=== PATIENT | female | born 1965 | race Caucasian/White ===

== ENCOUNTER 2024-05-11 12:46 | Inpatient (IN) ==
[2024-05-11 13:25] LABS: Base Excess VBG -3.7 mEq/L; HCO3 VBG 23 mmol/L; Oxygen Saturation VBG < 60.0 %; PCO2 VBG 45 mmHg (38-50); PO2 VBG 30 mmHg; pH VBG 7.31 (7.36-7.41)
[2024-05-11 13:40] LABS: Basophils # (auto) 0.05 K/uL (0.00-0.20); Basophils % (auto) 0.3 %; Hematocrit (blood only) 33.7 % (37.0-47.0); Hemoglobin 11.2 g/dl (12.0-16.0); Immature Granulocytes % (auto) 0.6 %; Lymphocytes # (auto) 1.01 K/uL (1.20-3.40); Lymphocytes % (auto) 5.7 %; Mean Corpuscular Hemoglobin 31.4 pg (25.0-34.0); Mean Corpuscular Hgb Conc 33.2 g/dL (32.0-36.0); Mean Corpuscular Volume 94.4 fL (80.0-100.0); Mean Platelet Volume 8.5 fL (9.4-12.4); Monocytes # (auto) 1.14 K/uL (0.11-0.59); Monocytes % (auto) 6.4 %; Neutrophils # (auto) 15.39 K/uL (1.40-6.50); Platelet Count 513 K/uL (130-400); RDW Coefficient of Variation 15.9 % (11.5-14.5); RDW Standard Deviation 54.4 fL (36.4-46.3); Red Blood Count 3.57 M/uL (4.20-5.40); White Blood Count 17.69 K/ul (4.8-10.8)
--- NOTE | 2024-05-11 13:42 | Emergency Department Note ---
Impression & Plan Hypoxia, Tachypnea, Pneumonia, COPD exacerbation, Medical non-compliance, Leukocytosis, Elevated liver enzymes, Tachycardia ED Provider Note NAME: CONRADO MALDONADO AGE: 59 SEX: F : 1965 ARRIVES VIA: Ambulance INFORMANT: [Patient][nursing] ED PROVIDER(S): [Tobias Deshpande MD] CHIEF COMPLAINT: Shortness of breath HISTORY OF PRESENT ILLNESS: The patient is a 59-year-old female with a history of COPD. As per report, she stopped all of her medications 5 months ago. She presents today for increasing dyspnea and shortness of breath. As per EMS, her O2 saturation was in the mid 80s. She required O2 supplementation. She does not typically wear oxygen. PMHx/PSHx/Social Hx: See Below PHYSICAL EXAM: GENERAL: Patient is in no acute distress. Agitated. Anxious. HEENT: No acute trauma, normocephalic atraumatic, mucous membranes dry, no nasal congestion. Extremely poor dentition. NECK: No stridor, no adenopathy, no meningismus, trachea is midline. LUNGS: Wheezing bilaterally, diminished breath sounds bilaterally, increased respiratory rate. Wet cough noted. HEART: Tachycardic with no obvious murmur, rhythm seems regular. ABDOMEN: Soft, nontender, no peritonitis. EXTREMITIES: No cyanosis, full range of motion of all the joints without pain or difficulty. NEUROLOGIC: Oriented x 3, no acute motor or sensory deficits, no focal weakness. SKIN: No jaundice, no diaphoresis. DIFFERENTIAL DIAGNOSIS: Bronchitis or pneumonia, medication noncompliance, anemia, viral illness, PE, among others. EMERGENCY DEPARTMENT PROCEDURES: MEDICAL DECISION MAKING: There is a moderate leukocytosis, this could be consistent with infection or the stress of her presentation. The patient did have a slight anemia with a hemoglobin of 11.2. Platelet count slightly elevated at just over 500. INR was slightly high at 1.2. VBG showed a subtle acidosis with a pH of 7.31. There was no significant CO2 retention. Lactic acid level was not elevated making severe sepsis less likely. There was no renal failure or significant electrolyte abnormality. Liver enzymes were elevated, the bilirubin however was normal. BNP was elevated consistent with potential CHF and fluid overload. ECG showed a sinus tachycardia, no obvious acute ST elevation. Cardiac enzyme testing x 1 was not consistent with acute cardiac injury. TSH was elevated consistent with hypothyroidism. Urinalysis did not show findings of infection. Aspirin, Tylenol and alcohol levels were undetectable. Urine tox was positive for ecstasy and amphetamines. Respiratory bio fire was negative. Chest x-ray showed diffuse parenchymal congestion consistent with infection. Chest CT did not show PE, multifocal pneumonia was seen. The patient received IV saline, 1.5 L. This amount of saline should cover for 30 cc/kg per sepsis protocol based on ideal body weight. She received IV Solu- Medrol. She received IV Ativan for agitation. She received IV cefepime as antibiotic therapy. She received 2 DuoNebs. The patient presents tachycardic, tachypneic, hypoxic. She was found to be suffering from pneumonia with a flare of COPD. She is going require a hospital stay and further pulmonary care. I spoke with the patient and case management, the on-call hospitalist was consulted. Of note, the patient has shown some improvement with treatment here in the ED. Prior/Outside records/notes reviewed: Today's EMS notes describing her presentation and transport to this hospital. ECG per my interpretation: Indication was shortness of breath. The ECG shows a sinus tachycardia with a rate of 108. There is a possible old septal infarct. There is no acute ST elevation, no PVCs. The QTc is 460. Continuous Cardiac Monitoring per my interpretation: An order was placed for continuous cardiac monitoring. The monitor shows a rate of 113 with sinus tachycardia. Imaging/x-ray results per my interpretation: Chest x-ray shows diffuse parenchymal congestion mostly on the right. COPD changes are seen. No obvious focal infiltrate. Chronic Medical/Social conditions affecting care: History of COPD and medication noncompliance Care/Management discussed with: Case management, the on-call hospitalist. Level of care consideration(s): After review of the information above and other included data: --I believe the patient requires escalation of care to admission Critical Care Note: I have personally spent 49 minutes of critical care time in the direct management of this patient. This includes bedside care, interpretation of diagnostic studies, and testing, discussion with consultants, patient, and family members, and other required patient management activities. This 49 minutes is in excess of all separately billable procedures. DISPOSITION: Admission Past Med/Surg History Problem List (Updated 05/11/24 @ 20:35 by Tobias Deshpande MD) Tachycardia (Acute) Elevated liver enzymes (Acute) Leukocytosis (Acute) Medical non-compliance (Acute) COPD exacerbation (Acute) Pneumonia (Acute) Tachypnea (Acute) Hypoxia (Acute) Cavitary pneumonia Acetaminophen overdose COPD with exacerbation Cocaine withdrawal Sepsis Elevated LFTs Cocaine abuse Cavitary lung disease Bronchiectasis COPD (chronic obstructive pulmonary disease) Acute hypoxic respiratory failure Medical History Current every day smoker Hypothyroidism Opioid dependence Family History Other Family history non-contributory Social History Smoking Status: Current every day smoker Tobacco Type: Cigarettes Hx Alcohol Use: No Hx Substance Use: Yes (unsure of narcotic name) Non-Prescribed Medications: Crack / Cocaine Last Used Substance: Just Prior to Arrival Preferred Language: Citizen Of [place] Communication Ability: Impaired [employer] Required: No Beliefs That Will Affect Care: None marital status: Single Current Living Situation: Family Current Living Situation Comment: lives with daughter Feels Safe at Home: Yes Assistive Devices: Denture - Upper Allergies Allergies Allergy/AdvReac Type Severity Reaction Status Date / Time No Known Allergies Allergy Verified 02/26/21 13:08 Home Meds Home Medications Medication Instructions Recorded Confirmed acetaminophen 500 mg tablet 500 mg PO Q6H PRN Pain 05/11/24 05/11/24 Results & Data (ED) Vital Signs Vital Signs - 24 hr 05/11/24 12:36 05/11/24 12:36 05/11/24 12:50 Temperature Temperature Source Pulse Rate Pulse Rate [Apical] 116 H Respiratory Rate 26 H Respiratory Effort / Characteristics Labored Pursed Lip Blood Pressure Blood Pressure [Left Arm] 126/86 Blood Pressure Mean Blood Pressure Mean [Left Arm] 99 Pulse Oximetry 94 Oxygen Delivery Method Nasal Cannula Nasal Cannula Nasal Cannula Oxygen Flow Rate 3 3 3 Sepsis Recent Fever Within 48 Hours Sepsis New/Unexplained Change in Mental Status Sepsis Action Taken by Nursing 05/11/24 13:04 05/11/24 13:10 05/11/24 13:25 Temperature 36.9 C Temperature Source Oral Pulse Rate 110 H 112 H Pulse Rate [Apical] Respiratory Rate 26 H Respiratory Effort / Characteristics Blood Pressure 126/86 Blood Pressure [Left Arm] Blood Pressure Mean 99 Blood Pressure Mean [Left Arm] Pulse Oximetry 95 95 Oxygen Delivery Method Nasal Cannula Nasal Cannula Oxygen Flow Rate 3 2 Sepsis Recent Fever Within 48 Hours No Sepsis New/Unexplained Change in Mental Status No Sepsis Action Taken by Nursing Physician Notified 05/11/24 14:30 Temperature Temperature Source Pulse Rate Pulse Rate [Apical] 111 H Respiratory Rate 26 H Respiratory Effort / Characteristics Blood Pressure Blood Pressure [Left Arm] 143/88 H Blood Pressure Mean Blood Pressure Mean [Left Arm] 106 Pulse Oximetry 96 Oxygen Delivery Method Nasal Cannula Oxygen Flow Rate 2 Sepsis Recent Fever Within 48 Hours Sepsis New/Unexplained Change in Mental Status Sepsis Action Taken by Group Home Medications Current Medication List: was personally reviewed by me Laboratory Data Attestation: I reviewed the patient's lab results. 05/11/24 12:55 05/11/24 12:55 Lab Results 05/11/24 05/11/24 05/11/24 Range/Units 12:55 13:33 14:13 WBC 17.69 H (4.8-10.8) K/ul RBC 3.57 L (4.20-5.40) M/uL Hgb 11.2 L (12.0-16.0) g/dl Hct 33.7 L (37.0-47.0) % MCV 94.4 (80.0-100.0) fL MCH 31.4 (25.0-34.0) pg MCHC 33.2 (32.0-36.0) g/dL RDW Std Deviation 54.4 H (36.4-46.3) fL RDW Coeff of Marilee 15.9 H (11.5-14.5) % Plt Count 513 H (130-400) K/uL MPV 8.5 L (9.4-12.4) fL Immature Gran % (Auto) 0.6 % Neut % (Auto) 87.0 % Lymph % (Auto) 5.7 % [place] % (Auto) 6.4 % Eos % (Auto) 0.0 % Baso % (Auto) 0.3 % Neut # (Auto) 15.39 H (1.40-6.50) K/uL Lymph # (Auto) 1.01 L (1.20-3.40) K/uL [place] # (Auto) 1.14 H (0.11-0.59) K/uL Eos # (Auto) 0.00 (0.00-0.50) K/uL Baso # (Auto) 0.05 (0.00-0.20) K/uL Immature Gran # (Auto) 0.10 (0.01-0.20) K/uL PT 12.5 H (9.0-12.0) Seconds INR 1.2 H (0.9-1.1) APTT 27 (21-31) Seconds PTT Ratio 1.0 VBG pH 7.31 L (7.36-7.41) VBG pCO2 45 (38-50) mmHg VBG pO2 30 mmHg VBG HCO3 23 mmol/L VBG O2 Saturation < 60.0 % VBG Base Excess -3.7 mEq/L Sodium 136 (136-145) mmol/L Potassium 3.6 (3.5-5.1) mmol/L Chloride 99 (98-107) mmol/L Carbon Dioxide 27 (21-32) mmol/L Anion Gap 10 (3-11) BUN 31 H (6-23) mg/dl Creatinine 1.10 (0.6-1.2) mg/dl Est Cr Clr Drug Dosing 39.6 ml/min eGFR 57.52 BUN/Creatinine Ratio 28.2 H (10-20) Glucose 95 (70-99(Fasting)) mg/dl Lactate 1.6 (0.4-2.0) mmol/L Calcium 9.8 (8.6-10.3) mg/dl Magnesium 1.9 (1.7-2.4) mg/dl Total Bilirubin 0.5 (0.2-1.0) mg/dl AST 126 H (13-39) U/L ALT 73 H (7-52) U/L Alkaline Phosphatase 105 H (34-104) U/L Troponin I High Sens 13.5 (0-14) pg/ml B-Natriuretic Peptide 223 H (0-100) pg/ml Total Protein 9.2 H (6.0-8.3) gm/dl Albumin 4.2 (3.4-5.0) gm/dl Globulin 5.0 H (2.5-4.0) gm/dl Albumin/Globulin Ratio 0.8 L (0.9-2) TSH 38.955 H (0.300-4.500) uIu/ml Free T4 0.33 L (0.61-1.60) ng/dl Ethyl Alcohol mg/dL < 10.0 (<10.0) mg/dl Adenovirus (PCR) (NotDetected) B. pertussis DNA (PCR) (NotDetected) B.parapertussis DNA PCR (NotDetected) C. pneumoniae DNA (PCR) (NotDetected) Coronavirus OC43 (PCR) (NotDetected) Coronavirus HKU1 (PCR) (NotDetected) Coronavirus 229E (PCR) (NotDetected) SARS-CoV-2 (PCR) (NotDetected) Coronavirus NL63 (PCR) (NotDetected) Human Metapneumovir PCR (NotDetected) Influenza Type A (PCR) (NotDetected) Influenza Type B (PCR) (NotDetected) M. pneumoniae (PCR) (NotDetected) Parainfluenza 1 (PCR) (NotDetected) Parainfluenza 2 (PCR) (NotDetected) Parainfluenza 3 (PCR) (NotDetected) Parainfluenza 4 (PCR) (NotDetected) RSV (PCR) (NotDetected) Entero/Rhino (PCR) (NotDetected) 05/11/24 Range/Units 14:25 WBC (4.8-10.8) K/ul RBC (4.20-5.40) M/uL Hgb (12.0-16.0) g/dl Hct (37.0-47.0) % MCV (80.0-100.0) fL MCH (25.0-34.0) pg MCHC (32.0-36.0) g/dL RDW Std Deviation (36.4-46.3) fL RDW Coeff of Marilee (11.5-14.5) % Plt Count (130-400) K/uL MPV (9.4-12.4) fL Immature Gran % (Auto) % Neut % (Auto) % Lymph % (Auto) % [place] % (Auto) % Eos % (Auto) % Baso % (Auto) % Neut # (Auto) (1.40-6.50) K/uL Lymph # (Auto) (1.20-3.40) K/uL [place] # (Auto) (0.11-0.59) K/uL Eos # (Auto) (0.00-0.50) K/uL Baso # (Auto) (0.00-0.20) K/uL Immature Gran # (Auto) (0.01-0.20) K/uL PT (9.0-12.0) Seconds INR (0.9-1.1) APTT (21-31) Seconds PTT Ratio VBG pH (7.36-7.41) VBG pCO2 (38-50) mmHg VBG pO2 mmHg VBG HCO3 mmol/L VBG O2 Saturation % VBG Base Excess mEq/L Sodium (136-145) mmol/L Potassium (3.5-5.1) mmol/L Chloride (98-107) mmol/L Carbon Dioxide (21-32) mmol/L Anion Gap (3-11) BUN (6-23) mg/dl Creatinine (0.6-1.2) mg/dl Est Cr Clr Drug Dosing ml/min eGFR BUN/Creatinine Ratio (10-20) Glucose (70-99(Fasting)) mg/dl Lactate (0.4-2.0) mmol/L Calcium (8.6-10.3) mg/dl Magnesium (1.7-2.4) mg/dl Total Bilirubin (0.2-1.0) mg/dl AST (13-39) U/L ALT (7-52) U/L Alkaline Phosphatase (34-104) U/L Troponin I High Sens (0-14) pg/ml B-Natriuretic Peptide (0-100) pg/ml Total Protein (6.0-8.3) gm/dl Albumin (3.4-5.0) gm/dl Globulin (2.5-4.0) gm/dl Albumin/Globulin Ratio (0.9-2) TSH (0.300-4.500) uIu/ml Free T4 (0.61-1.60) ng/dl Ethyl Alcohol mg/dL (<10.0) mg/dl Adenovirus (PCR) Not Detected (NotDetected) B. pertussis DNA (PCR) Not Detected (NotDetected) B.parapertussis DNA PCR Not Detected (NotDetected) C. pneumoniae DNA (PCR) Not Detected (NotDetected) Coronavirus OC43 (PCR) Not Detected (NotDetected) Coronavirus HKU1 (PCR) Not Detected (NotDetected) Coronavirus 229E (PCR) Not Detected (NotDetected) SARS-CoV-2 (PCR) Not Detected (NotDetected) Coronavirus NL63 (PCR) Not Detected (NotDetected) Human Metapneumovir PCR Not Detected (NotDetected) Influenza Type A (PCR) Not Detected (NotDetected) Influenza Type B (PCR) Not Detected (NotDetected) M. pneumoniae (PCR) Not Detected (NotDetected) Parainfluenza 1 (PCR) Not Detected (NotDetected) Parainfluenza 2 (PCR) Not Detected (NotDetected) Parainfluenza 3 (PCR) Not Detected (NotDetected) Parainfluenza 4 (PCR) Not Detected (NotDetected) RSV (PCR) Not Detected (NotDetected) Entero/Rhino (PCR) Not Detected (NotDetected) Administered Medications Albuterol (Albut/Ipratrop 3mg/0.5mg Neb 3 Ml Vial) 3 ml NEB Q6R LESLI; Protocol Stop: 06/10/24 18:59 Last Admin: 05/11/24 19:53 Dose: 3 ml Documented By: JANETT Potassium Chloride/Sodium Chloride (Normal Saline W/20 Meq Kcl) 20 meq in 1,000 mls @ 100 mls/hr IV .Q10H LESLI Stop: 05/12/24 17:30 Last Admin: 05/11/24 18:04 Dose: 100 mls/hr Documented By: MELONIE Acetylcysteine 2,310 mg/ (Dextrose) 511.55 mls @ 125 mls/hr IV ONCE ONE; Protocol Stop: 05/11/24 22:44 Last Admin: 05/11/24 19:50 Dose: 125 mls/hr Documented By: KAPIL Lorazepam (Lorazepam 1 Mg Tab) 1 mg PO Q8H LESLI Stop: 06/10/24 17:59 Last Admin: 05/11/24 19:57 Dose: Not Given Documented By: LAG Nicotine (Nicotine 14 Mg/24 Hr Patch) 1 patch TD QAM LESLI Stop: 06/10/24 17:30 Last Admin: 05/11/24 17:56 Dose: 1 patch Documented By: MELONIE Discontinued Medications Albuterol (Albut/Ipratrop 3mg/0.5mg Neb 3 Ml Vial) 3 ml NEB NOW STA; Protocol Stop: 05/11/24 13:27 Last Admin: 05/11/24 13:52 Dose: 3 ml Documented By: FREDY Albuterol (Albut/Ipratrop 3mg/0.5mg Neb 3 Ml Vial) 3 ml NEB NOW STA; Protocol Stop: 05/11/24 15:11 Last Admin: 05/11/24 15:25 Dose: 3 ml Documented By: FREDY Albuterol (Albut/Ipratrop 3mg/0.5mg Neb 3 Ml Vial) Confirm Administered Dose 12 ml .ROUTE .STK-MED ONE Stop: 05/11/24 17:31 Last Admin: 05/11/24 17:37 Dose: 3 ml Documented By: ELISHA Cefepime HCl (Maxipime 2000mg) 2,000 mg in 20 mls @ 5 mls/min IV NOW STA; Protocol Stop: 05/11/24 13:29 Last Admin: 05/11/24 14:26 Dose: 5 mls/min Documented By: FREDY Sodium Chloride (Nss) 500 mls @ 999 mls/hr IV .Q31M ONE Stop: 05/11/24 14:22 Last Infusion: 05/11/24 15:26 Dose: Infused Documented By: Admin: 05/11/24 14:26 Dose: 999 mls/hr Documented By: FREDY Sodium Chloride (Nss) 1,000 mls @ 999 mls/hr IV .Q1H1M ONE Stop: 05/11/24 16:09 Last Infusion: 05/11/24 16:53 Dose: Infused Documented By: Admin: 05/11/24 15:27 Dose: 999 mls/hr Documented By: FREDY Acetylcysteine 6,920 mg/ (Dextrose) 234.6 mls @ 200 mls/hr IV ONCE ONE; Protocol Stop: 05/11/24 18:48 Last Infusion: 05/11/24 19:16 Dose: Infused Documented By: Admin: 05/11/24 18:12 Dose: 200 mls/hr Documented By: MELONIE Ioversol (Optiray 320 125ml) 118 ml IV ONCE ONE Stop: 05/11/24 14:40 Last Admin: 05/11/24 14:39 Dose: 118 ml Documented By: LAINEY Lorazepam (Lorazepam 2 Mg/1 Ml Vial) 0.5 mg IV NOW STA Stop: 05/11/24 13:43 Last Admin: 05/11/24 14:06 Dose: 0.5 mg Documented By: SIMON Lorazepam (Lorazepam 2 Mg/1 Ml Vial) 0.5 mg IV NOW STA Stop: 05/11/24 15:25 Last Admin: 05/11/24 15:39 Dose: 0.5 mg Documented By: FREDY Lorazepam (Lorazepam 2 Mg/1 Ml Vial) 1 mg IV NOW STA Stop: 05/11/24 17:34 Last Admin: 05/11/24 17:36 Dose: 1 mg Documented By: ELISHA Lorazepam (Lorazepam 2 Mg/1 Ml Vial) Confirm Administered Dose 2 mg .ROUTE .STK- MED ONE Stop: 05/11/24 17:35 Last Admin: 05/11/24 18:26 Dose: Not Given Documented By: MELONIE Methylprednisolone (Methylprednisolone 125 Mg/2 Ml Vial) 60 mg IV NOW STA Stop: 05/11/24 15:10 Last Admin: 05/11/24 15:30 Dose: 60 mg Documented By: FREDY Methylprednisolone (Methylprednisolone 125 Mg/2 Ml Vial) 15 mg IV NOW STA Stop: 05/11/24 17:33 Last Admin: 05/11/24 19:28 Dose: Not Given Documented By: KAPIL Methylprednisolone (Methylprednisolone 125 Mg/2 Ml Vial) 125 mg IV NOW STA Stop: 05/11/24 17:33 Last Admin: 05/11/24 17:36 Dose: 125 mg Documented By: ELISHA Miscellaneous (Stat Iv/Im) 1 each N/A NOW STA Stop: 05/11/24 17:39 Last Admin: 05/11/24 19:28 Dose: Not Given Documented By: KAPIL Imaging Data Radiologist's Impression: Chest X-Ray 05/11/24 13:10 XR chest 1V portable CLINICAL HISTORY: Dyspnea COMPARISON STUDY: 02/26/2021 FINDINGS: Heart size and pulmonary vasculature are normal. There is emphysema. There is interval left apical pleural thickening with adjacent reticular and patchy opacity at the left lung apex. No other consolidation or pleural effusion seen. There is a 2.5 cm oval density at the mid central mediastinum just left of midline. IMPRESSION: 1. Emphysema. 2. Interval left apical pleural thickening and adjacent reticular and patchy opacity. Differential diagnosis includes scarring, pneumonia, malignancy, and posttreatment change. 3. Mid mediastinal density. Differential diagnosis includes artifact, enlarged lymph node, and other finding. 4. Suggest follow-up CT scan of the chest. ACT 112: Positive. There are findings on this exam that require communication between the performing entity and the patient following Patient Test Result [place] Act [place] Act 112) guidelines. Electronically signed by: Jeffery Garces M.D. 05/11/2024 1:44 PM Chest CTA 05/11/24 13:52 CT angio chest PE protocol CT DOSE: 255.58 mGy.cm HISTORY: 59 years-old Female with PE. Acute onset of breath TECHNIQUE: Multiple CTA images of the chest were obtained after the intravenous administration of 118 ml Optiray. Coronal and sagittal MIPS were obtained from the axial data set and were submitted for review. All measurements were obtained according to NASCET criteria. A dose lowering technique was utilized adhering to the principles of ALARA. COMPARISON: Chest radiograph of same day FINDINGS: CTA: Heart is normal in size. No pericardial effusion. Moderate coronary artery calcifications. Atherosclerosis of the aorta without aneurysm no central pulmonary emboli identified, evaluation is limited secondary to respiratory motion. CT CHEST: No dominant thyroid nodule. There are a few borderline-enlarged mediastinal and hilar lymph nodes measuring up to 10 mm. Respiratory motion artifact limits the study. Severe pulmonary emphysema. No pneumothorax. Bronchial wall thickening with mucous plugging. Multifocal tree-in-bud nodular opacities. Linear focus of consolidation within the left lower lobe measures approximately 4.4 x 1.7 x 2.7 cm. 5.4 cm irregular thick-walled cavitary focus in the left lung apex contains a 3.7 cm ovoid soft tissue attenuating structure centrally. Additionally, there is left lung volume loss with bronchiectasis and fibrosis within the lingula and left lung apex. Mild patchy consolidative opacities in the right lung. Small loculated left apical pleural effusion. Mild mid to distal esophageal wall thickening. No acute fracture or destructive bone lesion. IMPRESSION: 1. No pulmonary emboli. 2. Severe pulmonary emphysema with mucous plugging and probable bronchitis with multifocal infectious or inflammatory pneumonitis/bronchiolitis. 3. Small loculated left apical pleural effusion with mild mediastinal and hilar lymphadenopathy. 4. Volume loss with fibrosis and bronchiectasis of the left lung apex with 5.4 cm cavitation containing a 3.7 cm soft tissue density structure. This may represent a mycetoma however could be evaluated with bronchoscopy to exclude bronchogenic malignancy. 5. Additional indeterminate ovoid tubular opacity of the superior segment left lower lobe measuring 4.4 cm. Follow-up is needed. ACT 112: Negative or not required by law. The above report was generated using voice recognition software. It may contain grammatical, syntax or spelling errors. Electronically signed by: Celestino Plaza M.D. 05/11/2024 3:00 PM Discharge Plan Visit Data Chief Complaint: Shortness of Breath/Dyspnea ED Provider: Tobias Deshpande Discharge Problem: Hypoxia, Tachypnea, Pneumonia, COPD exacerbation, Medical non-compliance, Leukocytosis, Elevated liver enzymes, Tachycardia Patient Disposition: Admitted As Inpatient Condition: Serious Discharge Instructions Interventions: ED Discharge Assessment Last Done: 05/11/24 17:05 Discharge Problem: Pneumonia Qualifiers: Pneumonia type: due to unspecified organism Laterality: bilateral Lung location: unspecified part of lung Qualified Code(s): J18.9 - Pneumonia, unspecified organism Leukocytosis Qualifiers: Leukocytosis type: unspecified Qualified Code(s): D72.829 - Elevated white blood cell count, unspecified
--- NOTE | 2024-05-11 13:46 | XRay Report ---
XR chest 1V portable CLINICAL HISTORY: Dyspnea COMPARISON STUDY: 02/26/2021 FINDINGS: Heart size and pulmonary vasculature are normal. There is emphysema. There is interval left apical pleural thickening with adjacent reticular and patchy opacity at the left lung apex. No other consolidation or pleural effusion seen. There is a 2.5 cm oval density at the mid central mediastinu m just left of midline. IMPRESSION: 1. Emphysema. 2. Interval left apical pleural thickening and adjacent reticular and patchy opacity. Differential di agnosis includes scarring, pneumonia, malignancy, and posttreatment change. 3. Mid mediastinal density. Differential diagnosis includes artifact, enlarged lymph node, and other finding. 4. Suggest follow-up CT scan of the chest. ACT 112: Positive. There are findings on this exam that require communication between the performing entity and the patient following Patient Test Result [place] Act [place] Act 112) guidelines. Electronically signed by: Jeffery Garces M.D. 05/11/2024 1:44 PM
[2024-05-11] MEDS: ALBUT/IPRATROP 3MG/0.5MG NEB 3 ML VIAL NEB STA ×2 (13:52→15:25)
[2024-05-11 13:54] LABS: Albumin Globulin Ratio 0.8 (0.9-2); Albumin Level 4.2 gm/dl (3.4-5.0); BUN Creatinine Ratio 28.2 (10-20); Bilirubin,Total 0.5 mg/dl (0.2-1.0); Calcium 9.8 mg/dl (8.6-10.3); Creatinine Clr Calc Pharmacy 39.6 ml/min; Magnesium 1.9 mg/dl (1.7-2.4); Potassium 3.6 mmol/L (3.5-5.1); Total Protein 9.2 gm/dl (6.0-8.3)
[2024-05-11 14:00] LABS: Troponin I High Sensitivity 13.5 pg/ml (0-14)
[2024-05-11 14:06] LABS: INR 1.2 (0.9-1.1); Partial Thromboplastin Time 27 Seconds (21-31); Prothrombin Time 12.5 Seconds (9.0-12.0)
[2024-05-11] MEDS: LORazepam 2 MG/1 ML VIAL IV STA ×3 (14:06→17:36)
--- NOTE | 2024-05-11 14:24 | Electrocardiogram Report ---
Test Reason : Blood Pressure : */* mmHG Vent. Rate : 108 BPM Atrial Rate : 108 BPM P-R Int : 134 ms QRS Dur : 66 ms QT Int : 344 ms P-R-T Axes : 89 78 85 degrees QTcB Int : 460 ms Sinus tachycardia Possible Left atrial enlargement Abnormal ECG When compared with ECG of 20-Aug-2001 11:38, ST now depressed in Anterior leads T wave inversion now evident in Anterior leads Confirmed by Mino Pride ([id number]) on 05/11/2024 2:24:41 PM Referred By: Confirmed By: Mino Pride
[2024-05-11] MEDS: SODIUM CHLORIDE 0.9% 500 ML IV ONE (14:26)
[2024-05-11] MEDS: CEFEPIME 2000MG 2,000 MG/20 ML SYR IV STA (14:26)
[2024-05-11] MEDS: OPTIRAY 320 125ml IV ONE (14:39)
--- NOTE | 2024-05-11 15:02 | CT Scan Report ---
CT angio chest PE protocol CT DOSE: 255.58 mGy.cm HISTORY: 59 years-old Female with PE. Acute onset of breath TECHNIQUE: Multiple CTA images of the chest were obtained after the intravenous administration of 118 ml Optiray. Coronal and sagittal MIPS were obtained from the axial data set and were submitted for review. All measurements were obtained according to NASCET criteria. A dose lowering technique was u tilized adhering to the principles of ALARA. COMPARISON: Chest radiograph of same day FINDINGS: CTA: Heart is normal in size. No pericardial effusion. Moderate coronary artery calcifications. Atheroscle rosis of the aorta without aneurysm no central pulmonary emboli identified, evaluation is limited sec ondary to respiratory motion. CT CHEST: No dominant thyroid nodule. There are a few borderline-enlarged mediastinal and hilar lymph nodes dottie suring up to 10 mm. Respiratory motion artifact limits the study. Severe pulmonary emphysema. No pneu mothorax. Bronchial wall thickening with mucous plugging. Multifocal tree-in-bud nodular opacities. Linear focu s of consolidation within the left lower lobe measures approximately 4.4 x 1.7 x 2.7 cm. 5.4 cm irreg ular thick-walled cavitary focus in the left lung apex contains a 3.7 cm ovoid soft tissue attenuatin g structure centrally. Additionally, there is left lung volume loss with bronchiectasis and fibrosis within the lingula and left lung apex. Mild patchy consolidative opacities in the right lung. Small l oculated left apical pleural effusion. Mild mid to distal esophageal wall thickening. No acute fracture or destructive bone lesion. IMPRESSION: 1. No pulmonary emboli. 2. Severe pulmonary emphysema with mucous plugging and probable bronchitis with multifocal infectious or inflammatory pneumonitis/bronchiolitis. 3. Small loculated left apical pleural effusion with mild mediastinal and hilar lymphadenopathy. 4. Volume loss with fibrosis and bronchiectasis of the left lung apex with 5.4 cm cavitation containi ng a 3.7 cm soft tissue density structure. This may represent a mycetoma however could be evaluated w ith bronchoscopy to exclude bronchogenic malignancy. 5. Additional indeterminate ovoid tubular opacity of the superior segment left lower lobe measuring 4 .4 cm. Follow-up is needed. ACT 112: Negative or not required by law. The above report was generated using voice recognition software. It may contain grammatical, syntax o r spelling errors. Electronically signed by: Celestino Plaza M.D. 05/11/2024 3:00 PM
[2024-05-11] MEDS: SODIUM CHLORIDE 0.9% 1,000 ML IV ONE (15:27)
[2024-05-11 15:29] LABS: Adenovirus PCR Not Detected (NotDetected); Bordetella parapertussis PCR Not Detected (NotDetected); Bordetella pertussis PCR Not Detected (NotDetected); Chlamydia pneumoniae PCR Not Detected (NotDetected); Coronavirus 229E PCR Not Detected (NotDetected); Coronavirus CoV-2 (COVID19)PCR Not Detected (NotDetected); Coronavirus HKU1 PCR Not Detected (NotDetected); Coronavirus NL63 PCR Not Detected (NotDetected); Coronavirus OC43PCR Not Detected (NotDetected); Human Metapneumovirus PCR Not Detected (NotDetected); Influenza A PCR Not Detected (NotDetected); Influenza B PCR Not Detected (NotDetected); Mycoplasma pneumoniae PCR Not Detected (NotDetected); Parainfluenza Virus 1 PCR Not Detected (NotDetected); Parainfluenza Virus 2 PCR Not Detected (NotDetected); Parainfluenza Virus 3 PCR Not Detected (NotDetected); Parainfluenza Virus 4 PCR Not Detected (NotDetected); Respiratory Syncytial VirusPCR Not Detected (NotDetected); Rhinovirus/Enterovirus PCR Not Detected (NotDetected)
[2024-05-11] MEDS: methylPREDNISolone 125 MG/2 ML VIAL IV STA ×3 (15:30→19:28)
--- NOTE | 2024-05-11 16:30 | History & Physical Report ---
<Statement entered by Jacob Leigh, DO - 05/11/24 18:08> I have seen and examined the patient and have discussed the case with the advance practice provider. I have reviewed the advanced practitioner's documentation, and I agree with, and take responsibility for that plan of care. Patient extremely restless when seen in the ED. Coworkers at bedside confirmed he may have taken cocaine, patient admits to taking Tylenol PM with her clinical informatics strategist stimulants. Unsure if it was cocaine initially was told it was just "the good stuff." Later on patient did admit to doing 2 lines of cocaine on a fairly regular basis Plan for Ativan to manage symptoms Concern for polysubstance use/abuse including acetaminophen, cocaine, caffeine Further plan of care as outlined below I spent a total of 25 minutes coordinating, documenting, and providing care for this patient excluding time spent by another provider/QHP. Date of Service May 11, 2024 Assessment & Plan (1) Acute hypoxic respiratory failure: (2) COPD (chronic obstructive pulmonary disease): (3) Bronchiectasis: (4) Pneumonia: (5) Cavitary lung disease: (6) Current every day smoker: (7) Cocaine abuse: (8) Elevated LFTs: (9) Sepsis: Plan This is a 59 yr old F who has a significant PMH of drug abuse, tobacco abuse, COPD, anxiety and pulmonary embolism who presents to ED 2/2 SOB x 1 day. #Acute Hypoxic resp failure #Possible Sepsis -pt meets critiera given leukocytosis, tachycardia and tachypnea; however I feel the cocaine withdrawal likely playing a role in that as well #COPD Exacerbation #Multifocal PNA #Bronchiectasis #Cavitary lesion pt presents with increasing SOB and productive cough --CT chest: No pulmonary emboli.2. Severe pulmonary emphysema with mucous plugging and probable bronchitis with multifocal infectious or inflammatory pneumonitis/bronchiolitis.3. Small loculated left apical pleural effusion with mild mediastinal and hilar lymphadenopathy.4. Volume loss with fibrosis and bronchiectasis of the left lung apex with 5.4 cm cavitation containing a 3.7 cm soft tissue density structure. This may represent a mycetoma however could be evaluated with bronchoscopy to exclude bronchogenic malignancy.5. Additional indeterminate ovoid tubular opacity of the superior segment left lower lobe measuring 4.4 cm. Follow-up is needed. Consult Pulm in event bronch warranted Broad Spectrum antibiotics with IV cefepime and doxy Pulm toilet with nebs, ISP, FV IV Steroids Discussed with pts daughter Lalo who reports pt was hospitalized at [facility] and underwent a Bronch 2 years ago requiring a prolonged duration of antibiotics, epidemiologist at that time was Dr. Dustin Camp Try to obtain records as able #Known Drug Abuse #Cocaine abuse - pt reports snorting 2 lines a day for the past week #Stripper Black [employer] White use - consists of 300mg caffeine and green tea extract (can cause LFT elevated potentially per poison control) pt exhibiting signs of withdrawal AWSS protocol, PRN ativan ordered #Elevated LFTS; AST 126, ALT 73, ALP 105, pt reports tylenol pm use; unknown amount or when, check a tylenol level -Discussed with poison control, [id number] regarding pt reporting excessive tylenol pm use, unknown ingestion or amount with elevated LFTS -They recommended started NAC protocol now, they will follow up in a few hrs, repeat ECG now, PT/INR/ bladder scan(urinary retention with the diphenhydramine component) #Tobacco abuse nicotine patch ordered #Hx of PE: off blood thinners #Hypothyroidism: TSH 38.9, T4 0.33, will start levothyroxine 50mcg for now, will need repeat tsh in 4 weeks, pt previously with hypothyroidism and stopped taking her medications, in 2021 tsh 13 #DVT ppx: SQ Heparin FULL CODE PCP: Dr. Marisa Loving MD, [facility] Dispo: admit med/tele, pt was a code purple when arriving to the floor and was transferred to PCU for more intensive nursing care given known drug abuse Pt was seen and examined in collaboration with Dr. Leigh, please see addendum I spent a total of 70 minutes coordinating, documenting and providing care for this patient excluding time spent in the performance of separately billed services or time spent by another provider/QHP. Spoke with Pt Daughter Lalo and updated her regarding pt current condition and plan. She agrees with above. She states she has been dealing with her mother as a drug addict for most of her life. She wishes for provider updates. History of Present Illness Chief Complaint: SOB x 1 day. Primary Care Provider: [facility] Doni Loving MD This is a 59 yr old F who has a significant PMH of drug abuse, tobacco abuse, COPD, anxiety and pulmonary embolism who presents to ED 2/2 SOB x 1 day. Her co workers are at bedside who help elicit history. Hx difficulty to obtain due to pt restlessness. Pt admits to taking 2 lines of cocaine over the last week. She admits to being off/on drugs since her early 50s. According to coworker suspected last ingestion around 12 p.m. today. Co workers started to notice that she was acting funny and more short of breath. They felt her lips were turning blue so they called EMS. It is further reported that pt has stopped taking all of her medications over the last 5 months. SHe reports being on a blood thinner for hx of PE and anxiety medications. She denies any inhalers. She reports being more SOB over the last few days as well as a productive cough. She reports being dx with PNA months ago, but never taking the medications she was presc ribed. She denies any documented fever/chills, sweats, dizziness, chest pain, hemopysis, n/v/d, abd pain. Overall diminished appetite. Her co workers at bedside report they work for a very small [employer] company and they have known jenise for several years. She has been part of their family and she does a really good job at her job. They also report they have been through this with her before. They feel her history is consistent with behaviors they have seen. Pt also elicits to taking an unknown amount of, "stackers," and tylenol pm. Pt lives with her daughter Lalo. At baseline she is independent of ADLS and does not need any assist walking device. She denies ETOH, IV Drug use. She does smoke 2 cigarettes a day. Allergies Allergy/AdvReac Type Severity Reaction Status Date / Time No Known Allergies Allergy Verified 02/26/21 13:08 Home Medications Medication Instructions Recorded Confirmed Type acetaminophen 500 mg tablet 500 mg PO Q6H PRN Pain 05/11/24 05/11/24 History Past Med/Surg History Problem List (Updated 05/11/24 @ 17:55 by Jacob Leigh DO) Cavitary pneumonia Acetaminophen overdose COPD with exacerbation Cocaine withdrawal Sepsis Elevated LFTs Cocaine abuse Cavitary lung disease Bronchiectasis COPD (chronic obstructive pulmonary disease) Acute hypoxic respiratory failure Medical History Current every day smoker Hypothyroidism Opioid dependence Family History Other Family history non-contributory Social History (Updated 05/11/24 @ 16:24 by Kyara Camilo PA-C) Smoking Status: Current every day smoker Tobacco Type: Cigarettes Hx Alcohol Use: No Hx Substance Use: Yes (unsure of narcotic name) Non-Prescribed Medications: Crack / Cocaine Last Used Substance: Just Prior to Arrival Preferred Language: Swazi marital status: Single Current Living Situation: Family Current Living Situation Comment: lives with daughter Feels Safe at Home: Yes Review of Systems Review of Systems: All systems reviewed & are unremarkable except as noted in HPI & below Physical Exam Physical Exam: Constitutional: Thin, fraile, F, appears older than stated age, in bed very restless, difficult to converse with due to moving around, vitals as above Head: Normocephalic, Atraumatic Eyes: PERRL, conjunctivae normal, anicteric sclerae ENMT: external ear and nose normal, oropharynx dry membranes with poor dentition Neck: trachea midline, no thyromegaly normal visual inspection Respiratory: increased resp effort, lungs with course/rhonchi throughout, no wheeze, rales no accessory muscle use Cardiovascular: tachycardic rate, reg rhythm, no murmur, no edema Vessels: no JVD or carotid bruit Chest: normal inspection of chest Abdomen: normal bowel sounds, soft, nontender, no hepatosplenomegaly Musculoskeletal: no cyanosis or clubbing, arom x 4 Skin: no rashes, warm and dry normal turgor Neurologic: PERRL, EOMI, accommodation nl, no face palsy, no dysarthria CN's II-XI intact bilaterally and moves all extremities Psychiatric: A+Ox3 to basics, euthymic affect : deferred Results & Data Results & Data Vital Signs (Past 12 Hours) Vital Signs Temp Pulse Pulse Resp BP BP Pulse Ox 05/11/24 14:30 111 H 26 H 143/88 H 96 05/11/24 13:25 112 H 05/11/24 13:10 95 05/11/24 13:04 36.9 C 110 H 26 H 126/86 95 05/11/24 12:50 116 H 26 H 126/86 94 05/11/24 12:36 05/11/24 12:36 O2 Del Method O2 Flow Rate 05/11/24 14:30 Nasal Cannula 2 05/11/24 13:25 05/11/24 13:10 Nasal Cannula 2 05/11/24 13:04 Nasal Cannula 3 05/11/24 12:50 Nasal Cannula 3 05/11/24 12:36 Nasal Cannula 3 05/11/24 12:36 Nasal Cannula 3 Laboratory Results I have independently reviewed and interpreted patient's admitting labs including CBC, CMP, PTT, PT/INR, mag and troponin. Diagnostic Findings Chest X-Ray 05/11/24 13:10 XR chest 1V portable CLINICAL HISTORY: Dyspnea COMPARISON STUDY: 02/26/2021 FINDINGS: Heart size and pulmonary vasculature are normal. There is emphysema. There is interval left apical pleural thickening with adjacent reticular and patchy opacity at the left lung apex. No other consolidation or pleural effusion seen. There is a 2.5 cm oval density at the mid central mediastinum just left of midline. IMPRESSION: 1. Emphysema. 2. Interval left apical pleural thickening and adjacent reticular and patchy op acity. Differential diagnosis includes scarring, pneumonia, malignancy, and posttreatment change. 3. Mid mediastinal density. Differential diagnosis includes artifact, enlarged lymph node, and other finding. 4. Suggest follow-up CT scan of the chest. ACT 112: Positive. There are findings on this exam that require communication between the performing entity and the patient following Patient Test Result [place] Act [place] Act 112) guidelines. Electronically signed by: Jeffery Garces M.D. 05/11/2024 1:44 PM Chest CTA 05/11/24 13:52 CT angio chest PE protocol CT DOSE: 255.58 mGy.cm HISTORY: 59 years-old Female with PE. Acute onset of breath TECHNIQUE: Multiple CTA images of the chest were obtained after the intravenous administration of 118 ml Optiray. Coronal and sagittal MIPS were obtained from the axial data set and were submitted for review. All measurements were obtained according to NASCET criteria. A dose lowering technique was utilized adhering to the principles of ALARA. COMPARISON: Chest radiograph of same day FINDINGS: CTA: Heart is normal in size. No pericardial effusion. Moderate coronary artery calcifications. Atherosclerosis of the aorta without aneurysm no central pulmonary emboli identified, evaluation is limited secondary to respiratory motion. CT CHEST: No dominant thyroid nodule. There are a few borderline-enlarged mediastinal and hilar lymph nodes measuring up to 10 mm. Respiratory motion artifact limits the study. Severe pulmonary emphysema. No pneumothorax. Bronchial wall thickening with mucous plugging. Multifocal tree-in-bud nodular opacities. Linear focus of consolidation within the left lower lobe measures approximately 4.4 x 1.7 x 2.7 cm. 5.4 cm irregular thick-walled cavitary focus in the left lung apex contains a 3.7 cm ovoid soft tissue attenuating structure centrally. Additionally, there is left lung volume loss with bronchiectasis and fibrosis within the lingula and left lung apex. Mild patchy consolidative opacities in the right lung. Small loculated left apical pleural effusion. Mild mid to distal esophageal wall thickening. No acute fracture or destructive bone lesion. IMPRESSION: 1. No pulmonary emboli. 2. Severe pulmonary emphysema with mucous plugging and probable bronchitis with multifocal infectious or inflammatory pneumonitis/bronchiolitis. 3. Small loculated left apical pleural effusion with mild mediastinal and hilar lymphadenopathy. 4. Volume loss with fibrosis and bronchiectasis of the left lung apex with 5.4 cm cavitation containing a 3.7 cm soft tissue density structure. This may represent a mycetoma however could be evaluated with bronchoscopy to exclude bronchogenic malignancy. 5. Additional indeterminate ovoid tubular opacity of the superior segment left lower lobe measuring 4.4 cm. Follow-up is needed. ACT 112: Negative or not required by law. The above report was generated using voice recognition software. It may contain grammatical, syntax or spelling errors. Electronically signed by: Celestino Plaza M.D. 05/11/2024 3:00 PM Medications Administered Medication List Discontinued Medications Albuterol (Albut/Ipratrop 3mg/0.5mg Neb 3 Ml Vial) 3 ml NEB NOW STA; Protocol Stop: 05/11/24 13:27 Last Admin: 05/11/24 13:52 Dose: 3 ml Documented By: FREDY Albuterol (Albut/Ipratrop 3mg/0.5mg Neb 3 Ml Vial) 3 ml NEB NOW STA; Protocol Stop: 05/11/24 15:11 Last Admin: 05/11/24 15:25 Dose: 3 ml Documented By: FREDY Cefepime HCl (Maxipime 2000mg) 2,000 mg in 20 mls @ 5 mls/min IV NOW STA; Protocol Stop: 05/11/24 13:29 Last Admin: 05/11/24 14:26 Dose: 5 mls/min Documented By: FREDY Sodium Chloride (Nss) 500 mls @ 999 mls/hr IV .Q31M ONE Stop: 05/11/24 14:22 Last Infusion: 05/11/24 15:26 Dose: Infused Documented By: Admin: 05/11/24 14:26 Dose: 999 mls/hr Documented By: FREDY Sodium Chloride (Nss) 1,000 mls @ 999 mls/hr IV .Q1H1M ONE Stop: 05/11/24 16:09 Last Admin: 05/11/24 15:27 Dose: 999 mls/hr Documented By: FREDY Ioversol (Optiray 320 125ml) 118 ml IV ONCE ONE Stop: 05/11/24 14:40 Last Admin: 05/11/24 14:39 Dose: 118 ml Documented By: LAINEY Lorazepam (Lorazepam 2 Mg/1 Ml Vial) 0.5 mg IV NOW STA Stop: 05/11/24 13:43 Last Admin: 05/11/24 14:06 Dose: 0.5 mg Documented By: SIMON Lorazepam (Lorazepam 2 Mg/1 Ml Vial) 0.5 mg IV NOW STA Stop: 05/11/24 15:25 Last Admin: 05/11/24 15:39 Dose: 0.5 mg Documented By: FREDY Methylprednisolone (Methylprednisolone 125 Mg/2 Ml Vial) 60 mg IV NOW STA Stop: 05/11/24 15:10 Last Admin: 05/11/24 15:30 Dose: 60 mg Documented By: FREDY ECG Additional Comments: I have independently reviewed and interpreted patient's admitting EKG which revealed: ST, 108 bpm, left atrial enlargement, t wave inversion lead v1/v2 COVID-19 Results Results COVID-19 Adm Lab Results: RBC 3.57 M/uL (4.20-5.40) L 05/11/24 WBC 17.69 K/ul (4.8-10.8) H 05/11/24 Hgb 11.2 g/dl (12.0-16.0) L 05/11/24 Hct 33.7 % (37.0-47.0) L 05/11/24 Plt Count 513 K/uL (130-400) H 05/11/24 Neutrophils (%) (Auto) 87.0 % 05/11/24 Lymphocytes (%) (Auto) 5.7 % 05/11/24 Monocytes # (Auto) 1.14 K/uL (0.11-0.59) H 05/11/24 Eosinophils # (Auto) 0.00 K/uL (0.00-0.50) 05/11/24 Immature Granulocyte % (Auto) 0.6 % 05/11/24 Neutrophils # (Auto) 15.39 K/uL (1.40-6.50) H 05/11/24 Lymphocytes # (Auto) 1.01 K/uL (1.20-3.40) L 05/11/24 Monocytes # (Auto) 1.14 K/uL (0.11-0.59) H 05/11/24 Eosinophils # (Auto) 0.00 K/uL (0.00-0.50) 05/11/24 Basophils # (Auto) 0.05 K/uL (0.00-0.20) 05/11/24 Immature Granulocyte # (Auto) 0.10 K/uL (0.01-0.20) 5 Na 136 mmol/L (136-145) 05/11/24 K 3.6 mmol/L (3.5-5.1) 05/11/24 Cl 99 mmol/L (98-107) 05/11/24 CO2 27 mmol/L (21-32) 05/11/24 Anion Gap 10 (3-11) 05/11/24 BUN 31 mg/dl (6-23) H 05/11/24 Creatinine 1.10 mg/dl (0.6-1.2) 05/11/24 BUN/Creatinine Ratio 28.2 (10-20) H 05/11/24 Glucose Level 95 mg/dl (70-99(Fasting)) 05/11/24 Ca 9.8 mg/dl (8.6-10.3) 05/11/24 Total Bilirubin 0.5 mg/dl (0.2-1.0) 05/11/24 AST/SGOT 126 U/L (13-39) H 05/11/24 ALT/SGPT 73 U/L (7-52) H 05/11/24 Alkaline Phosphatase 105 U/L (34-104) H 05/11/24 Total Protein 9.2 gm/dl (6.0-8.3) H 05/11/24 Albumin 4.2 gm/dl (3.4-5.0) 05/11/24 Globulin 5.0 gm/dl (2.5-4.0) H 05/11/24 Albumin/Globulin Ratio 0.8 (0.9-2) L 05/11/24 PTT 27 Seconds (21-31) 05/11/24 INR 1.2 (0.9-1.1) H 05/11/24 Adenovirus (PCR) Not Detected (NotDetected) 05/11/24 B. parapertussis DNA (PCR) Not Detected (NotDetected) 04/15 10/08 B. pertussis DNA (PCR) Not Detected (NotDetected) 05/11/24 C. pneumoniae DNA (PCR) Not Detected (NotDetected) 5 Coronavirus Type OC43 (PCR) Not Detected (NotDetected) Coronavirus Type HKU1 (PCR) Not Detected (NotDetected) Coronavirus Type 229E (PCR) Not Detected (NotDetected) COVID-19 PCR Not Detected (NotDetected) 05/11/24 Coronavirus Type NL63 (PCR) Not Detected (NotDetected) Human Metapneumovirus (PCR) Not Detected (NotDetected) Influenza Virus Type A (PCR) Not Detected (NotDetected) Influenza Virus Type B (PCR) Not Detected (NotDetected) M. pneumoniae (PCR) Not Detected (NotDetected) 05/11/24 Parainfluenza Type 1 (PCR) Not Detected (NotDetected) 04/15 10/08 Parainfluenza Type 2 (PCR) Not Detected (NotDetected) 04/15 10/08 Parainfluenza Type 3 (PCR) Not Detected (NotDetected) 04/15 10/08 Parainfluenza Type 4 (PCR) Not Detected (NotDetected) 04/15 10/08 RSV (PCR) Not Detected (NotDetected) 05/11/24 Enterovirus/Rhinovirus (PCR) Not Detected (NotDetected) Chest X-Ray 05/11/24 Code Status & VTE Plan Code Status FULL CODE VTE Prophylaxis Plan VTE Prophylaxis will be ordered: Yes (4) Pneumonia Laterality: bilateral Lung location: unspecified part of lung Pneumonia type: due to unspecified organism Qualified Code(s): J18.9 - Pneumonia, unspecified organism
[2024-05-11 16:54] LABS: Thyroid Stimulating Hormone 38.955 uIu/ml (0.300-4.500)
[2024-05-11 17:14] LABS: Appearance Urine Clear (Clear); Bacteria Urine Automated None Seen (None Seen); Bilirubin Urine Negative (Negative); Blood Urine 1+ (Negative); Cast Urine Automated 0-2 /lpf (0-2); Color Urine Yellow; Epithelial Cell Urine Auto 0-2 /hpf (0-2); Glucose Urine UA Negative (Negative); Ketones Urine Trace (Negative); Leukocyte Esterase Urine Negative (Negative); Nitrite Urine Negative (Negative); Protein Urine 1+ (Negative); RBC Urine Automated 0-2 /hpf (0-2); Specific Gravity Urine > 1.045 (1.000-1.030); Urobilinogen Urine Negative (Negative); WBC Urine Automated 0-5 /hpf (0-5); pH Urine 5.5 (4.5-7.5)
[2024-05-11] MEDS ORDERED: POLYETHYLENE (MIRALAX) 17 GM PACK PO PRN (17:31)
[2024-05-11] MEDS ORDERED: ONDANSETRON INJ 2 MG/ML 2 ML VIAL IV PRN (17:31)
[2024-05-11] MEDS ORDERED: LORazepam 2 MG/1 ML VIAL IV PRN ×2 (17:31)
[2024-05-11] MEDS ORDERED: ACETAMINOPHEN 325 MG TAB PO PRN (17:31)
[2024-05-11] MEDS ORDERED: Ativan IV Alcohol Withdrawal--Active Protocol IV PRN (17:31)
[2024-05-11] MEDS ORDERED: ALBUT/IPRATROP 3MG/0.5MG NEB 3 ML VIAL NEB PRN (17:34)
[2024-05-11] MEDS: ALBUT/IPRATROP 3MG/0.5MG NEB 3 ML VIAL ONE (17:37)
[2024-05-11 17:47] LABS: Amphetamines+Metham, Urine Pos (Neg); Barbiturates, Urine Neg (Neg); Benzodiazepine, Urine Neg (Neg); Cocaine, Urine Neg (Neg); Fentanyl, Urine Neg (Neg); MDMA (Ecstacy), Urine Pos (Neg); Marijuana, Urine Neg (Neg); Methadone, Urine Neg (Neg); Opiate, Urine Neg (Neg); Phencyclidine, Urine Neg (Neg)
[2024-05-11 17:56] LABS: T4 Free Thyroxine 0.33 ng/dl (0.61-1.60)
[2024-05-11] MEDS: NICOTINE 14 MG/24 HR PATCH TD SCH (17:56)
--- NOTE | 2024-05-11 18:03 | Hospitalist Progress Note ---
Date of Service May 11, 2024 Assessment & Plan (1) Acute hypoxic respiratory failure: (2) Cavitary pneumonia: (3) Cocaine withdrawal: (4) Sepsis: (5) Acetaminophen overdose: (6) COPD with exacerbation: (7) COPD (chronic obstructive pulmonary disease): (8) Cocaine abuse: (9) Bronchiectasis: (10) Pneumonia: (11) Current every day smoker: (12) Elevated LFTs: (13) Hypothyroidism: Plan Patient arrived to the medical telemetry floor, silvina quiroz called due to increasing agitation and restlessness. Arrived at bedside, patient with combination of symptoms including suspected cocaine withdrawal, respiratory distress however not hypoxic on current oxygen flow, Ativan 1 mg IV given DuoNeb given With these interventions patient significantly became less restless and became more calm. Improved airflow with more diffuse wheezing able to be auscultated now. Schedule Ativan, continue as needed Ativan Further discussion with PRBAHU, she spoke with poison control. They did recommend giving NAC with her questionable ingestion of unknown quantity of Tylenol PM. Recommend Ativan for cocaine With significant bronchospasm, suspect exacerbation of COPD, will continue oral steroids, suspect benefits will with outweigh risks in the setting of a pneumonia. Transfer to PCU for patient requiring increased nursing attention Other vital signs stable., Patient reevaluated multiple times Admission and Anticipated Discharge Date Admission Date: May 11, 2024 Subjective Responding to code richie, patient admits to some mild respiratory distress, no pain Physical Exam Physical Exam: Constitutional: Alert, acute distress HEENT: Mucous membranes dry Lungs: Decreased, prolonged expiratory phase CV: S1-S2, regular, tachycardic Abdomen: Soft, nontender, nondistended Extremities: No significant edema Neuro: No focal deficits Psych: Cooperative anxious, restless Results & Data Results & Data Vital Signs (Past 12 Hours) Vital Signs Temp Pulse Pulse Resp BP BP Pulse Ox 05/11/24 17:31 103 H 32 H 126/69 97 05/11/24 17:20 107 H 19 96 05/11/24 17:20 107 H 17 95 05/11/24 17:05 05/11/24 16:00 111 H 27 H 105/87 94 05/11/24 14:30 111 H 26 H 143/88 H 96 05/11/24 13:25 112 H 05/11/24 13:10 95 05/11/24 13:04 36.9 C 110 H 26 H 126/86 95 05/11/24 12:50 116 H 26 H 126/86 94 05/11/24 12:36 05/11/24 12:36 O2 Del Method O2 Flow Rate 05/11/24 17:31 Non-rebreather 15 05/11/24 17:20 Nasal Cannula 3 05/11/24 17:20 Nasal Cannula 3 05/11/24 17:05 Nasal Cannula 2 05/11/24 16:00 Nasal Cannula 2 05/11/24 14:30 Nasal Cannula 2 05/11/24 13:25 05/11/24 13:10 Nasal Cannula 2 05/11/24 13:04 Nasal Cannula 3 05/11/24 12:50 Nasal Cannula 3 05/11/24 12:36 Nasal Cannula 3 05/11/24 12:36 Nasal Cannula 3 Critical Care Time 30 minutes (10) Pneumonia Laterality: bilateral Lung location: unspecified part of lung Pneumonia type: due to unspecified organism Qualified Code(s): J18.9 - Pneumonia, unspecified organism (13) Hypothyroidism Hypothyroidism type: unspecified Qualified Code(s): E03.9 - Hypothyroidism, unspecified
[2024-05-11] MEDS: NSS + 20MEQ KCL 20 MEQ/1,000 ML BAG IV SCH (18:04)
[2024-05-11] MEDS: DEXTROSE 5% IV ONE ×2 (18:12→19:50)
[2024-05-11] MEDS: ACETYLCYSTEINE IV ONE ×2 (18:12→19:50)
[2024-05-11] MEDS: LORazepam 2 MG/1 ML VIAL ONE (18:26)
[2024-05-11] MEDS: STAT IV/IM STA (19:28)
[2024-05-11] MEDS: ALBUT/IPRATROP 3MG/0.5MG NEB 3 ML VIAL NEB SCH (19:53)
[2024-05-11] MEDS: LORazepam 1 MG TAB PO SCH (19:57)
[2024-05-11] MEDS: DOXYCYCLINE HYCLATE 100 MG CAP PO SCH (21:40)
[2024-05-11] MEDS: HEPARIN SOD 5,000 UNIT/0.5 ML VIAL SQ SCH (21:41)
[2024-05-11] MEDS: LORazepam 2 MG/1 ML VIAL IV PRN (22:09)
--- NOTE | 2024-05-11 22:11 | Ultrasound Report ---
Exam(s): US ABDOMEN LIMITED EXAM: US Abdomen Limited, Right Upper Quadrant CLINICAL HISTORY: Elevated liver function tests. TECHNIQUE: Real-time ultrasound of the right upper quadrant with image documentation. COMPARISON: No relevant prior studies available. FINDINGS: Liver: The liver measures 11.9 cm. Fatty infiltration of the liver. No intrahepatic bile duct dilation. Gallbladder: Unremarkable. No gallstones. Common bile duct: Unremarkable as visualized measuring 0.4 cm. No stones. No dilation. Pancreas: The pancreatic head and body are within normal limits. The tail is not visualized due to overlying bowel gas. Right kidney: Question mildly increased echogenicity of the right kidney. No stones. No hydronephrosis. The right kidney measures 10.5 cm. IMPRESSION: 1. Fatty infiltration of the liver. 2. Question mildly increased echogenicity of the right kidney. This could be seen with chronic medical renal disease in the appropriate clinical setting. Electronically signed by: Kailey Conner MD 05/11/24 22:10 PM
[2024-05-11 22:35] LABS: Albumin Level 3.7 gm/dl (3.4-5.0); Bilirubin Direct 0.1 mg/dl (0-0.2); Bilirubin,Total 0.4 mg/dl (0.2-1.0); Total Protein 8.1 gm/dl (6.0-8.3)
[2024-05-11 23:19] LABS: INR 1.2 (0.9-1.1); Partial Thromboplastin Ratio 1.2; Partial Thromboplastin Time 31 Seconds (21-31); Prothrombin Time 12.8 Seconds (9.0-12.0)
[2024-05-11] MEDS: CEFEPIME 2000MG 2,000 MG/20 ML SYR IV SCH (23:58)
[2024-05-12] MEDS: LEVOTHYROXINE SODIUM 50 MCG TABLET PO SCH (05:54)
[2024-05-12 07:40] LABS: Hematocrit (blood only) 31.2 % (37.0-47.0); Hemoglobin 10.3 g/dl (12.0-16.0); Mean Corpuscular Hemoglobin 31.6 pg (25.0-34.0); Mean Corpuscular Volume 95.7 fL (80.0-100.0); Mean Platelet Volume 8.6 fL (9.4-12.4); Platelet Count 441 K/uL (130-400); RDW Coefficient of Variation 15.8 % (11.5-14.5); RDW Standard Deviation 54.8 fL (36.4-46.3); Red Blood Count 3.26 M/uL (4.20-5.40); White Blood Count 17.82 K/ul (4.8-10.8)
[2024-05-12 08:00] LABS: Basophils # (auto) 0.03 K/uL (0.00-0.20); Basophils % (auto) 0.2 %; Immature Granulocytes # (auto) 0.11 K/uL (0.01-0.20); Immature Granulocytes % (auto) 0.6 %; Lymphocytes # (auto) 0.91 K/uL (1.20-3.40); Lymphocytes % (auto) 5.1 %; Monocytes # (auto) 0.42 K/uL (0.11-0.59); Monocytes % (auto) 2.4 %; Neutrophils # (auto) 16.35 K/uL (1.40-6.50); Neutrophils % (auto) 91.7 %
[2024-05-12 08:03] LABS: Albumin Globulin Ratio 0.9 (0.9-2); Albumin Level 3.3 gm/dl (3.4-5.0); BUN Creatinine Ratio 20.6 (10-20); Bilirubin,Total 0.3 mg/dl (0.2-1.0); Calcium 7.5 mg/dl (8.6-10.3); Creatinine Clr Calc Pharmacy 62.7 ml/min; Globulin 3.6 gm/dl (2.5-4.0); Magnesium 1.7 mg/dl (1.7-2.4); Potassium 3.6 mmol/L (3.5-5.1); Total Protein 6.9 gm/dl (6.0-8.3)
--- NOTE | 2024-05-12 09:17 | Hospitalist Progress Note ---
Date of Service May 12, 2024 Assessment & Plan (1) Acute hypoxic respiratory failure: (2) Cavitary pneumonia: (3) Cocaine withdrawal: (4) Sepsis: (5) Acetaminophen overdose: (6) COPD with exacerbation: (7) COPD (chronic obstructive pulmonary disease): (8) Cocaine abuse: (9) Bronchiectasis: (10) Pneumonia: (11) Current every day smoker: (12) Elevated LFTs: (13) Hypothyroidism: Plan This is a 59 yr old F who has a significant PMH of drug abuse, tobacco abuse, CO PD, anxiety and pulmonary embolism who presents to ED 2/2 SOB x 1 day. #Acute Hypoxic resp failure #Possible Sepsis #COPD Exacerbation #Multifocal PNA #Bronchiectasis #Cavitary lesion Pt presents with increasing SOB and productive cough. As per report, patient stopped all her medication 5 months ago. Prescription history does not show any medication --CT chest on admission No pulmonary emboli.2. Severe pulmonary emphysema with mucous plugging and probable bronchitis with multifocal infectious or inflammatory pneumonitis/bronchiolitis.3. Small loculated left apical pleural effusion with mild mediastinal and hilar lymphadenopathy.4. Volume loss with fibrosis and bronchiectasis of the left lung apex with 5.4 cm cavitation containing a 3.7 cm soft tissue density structure. This may represent a mycetoma however could be evaluated with bronchoscopy to exclude bronchogenic malignancy.5. Additional indeterminate ovoid tubular opacity of the superior segment left lower lobe measuring 4.4 cm. Follow-up is needed. Consult Pulm in event bronch warranted Continue antibiotics IV cefepime and doxy on budesonide and formoterol nebulizer; continue on [id number] DuoNeb. Further valve, incentive spirometry. Steroid for 5 days Pulmonology consulted; Recommend nebulized bronchodilators, hypertonic saline nebs and broad-spectrum antibiotic. #Known Drug use #?Cocaine/Amphetamine use - pt reports snorting 2 lines a day for the past week #Strategic Communications Manager use - consists of 300mg caffeine and green tea extract (can cause LFT elevated potentially per poison control) Patient had code purple on 05/11 for increased agitation and restlessness. Suspected to have withdrawal; was given IV Ativan. Monitor for withdrawal #Elevated LFTS; AST 126, ALT 73, ALP 105 on admision pt reports tylenol prn use; unknown amount Tylenol level less than 3 Poison control recommended NAC protocol which patient completed MalnutritionBMI of 16.9 kg/m; started on nutritional supplements #Tobacco abuse nicotine patch ordered #Hx of PE: off blood thinners; CTA doesn't show PE #Hypothyroidism: TSH 38.9, T4 0.33, will start levothyroxine 50mcg for now, will need repeat tsh in 4 weeks, pt previously with hypothyroidism and stopped taking her medications, in 2021 tsh 13 Plan of care discussed with patient's daughter and son at bedside. #DVT ppx: SQ Heparin Time spent evaluating patient, direct bedside care, chart review, placing orders, interpretation of diagnostic studies, discussion with consultants, shlipae nt, and family members, as well as other required patient management activities is 50 minutes Please note the above document was generated using voice recognition software. It may contain grammatical, syntax or spelling errors. Any formal questions or concerns about the content, text or information contained within the body of this dictation should be directly addressed to the provider for clarification Admission and Anticipated Discharge Date Admission Date: May 11, 2024 Subjective Patient seen and examined at bedside. She reports that her breathing is slightly better compared to yesterday She is restless; she is requiring 2 L of oxygen by nasal cannula Review of Systems Review of Systems: All systems reviewed & are unremarkable except as noted in Subjective Physical Exam Physical Exam: Constitutional: WD/WN, vitals as above, NAD, sitting up in bed, pleasant, conversing easily Respiratory: normal respiratory effort, lungs clear to auscultation, no wheeze, rales, rhonchi. Normal insp/exp effort, no accessory muscle use Cardiovascular: RRR, no murmur, no edema Vessels: no JVD or carotid bruit Chest: normal inspection of chest Abdomen: normal bowel sounds, soft, nontender, no hepatosplenomegaly Musculoskeletal: no cyanosis or clubbing, extremities motor strength 5/5 Skin: no rashes, warm and dry normal turgor Neurologic: PERRL, EOMI, accommodation nl, no face palsy, no dysarthria CN's II- XI intact bilaterally and moves all extremities Psychiatric: A+Ox3, euthymic affect Results & Data Results & Data Vital Signs (Past 12 Hours) Vital Signs Temp Pulse Pulse Resp BP BP Pulse Ox 05/12/24 07:45 87 05/12/24 07:22 36.5 C 88 18 129/84 100 03/29/25 07:02 16 98 05/12/24 03:31 36.7 C 101 H 18 121/62 95 05/12/24 00:05 90 20 94 05/11/24 23:00 112 H 05/11/24 22:40 36.3 C L 106 H 20 131/78 94 O2 Del Method O2 Flow Rate 05/12/24 07:45 05/12/24 07:22 Nasal Cannula 3 05/12/24 07:02 Nasal Cannula 3 05/12/24 03:31 Nasal Cannula 3 05/12/24 00:05 Nasal Cannula 3 05/11/24 23:00 05/11/24 22:40 Nasal Cannula 3 (10) Pneumonia Laterality: bilateral Lung location: unspecified part of lung Pneumonia type: due to unspecified organism Qualified Code(s): J18.9 - Pneumonia, unspecified organism (13) Hypothyroidism Hypothyroidism type: unspecified Qualified Code(s): E03.9 - Hypothyroidism, unspecified
[2024-05-12] MEDS: AcetylCYSTEINE IV 21 HR REGIMEN (>40KG) IV STA (10:03)
[2024-05-12] MEDS: predniSONE 20 MG TAB PO SCH (10:13)
--- NOTE | 2024-05-12 10:26 | Pulmonary Consultation ---
Date of Consultation May 12, 2024 Assessment & Plan (1) COPD exacerbation: (2) Cavitary lung disease: (3) COPD (chronic obstructive pulmonary disease): (4) Acute hypoxic respiratory failure: (5) Current every day smoker: (6) Cocaine abuse: Plan CT chest 05/11/2024 personally reviewed: Motion degraded study Cavitary lesion in the left upper lobe with possible Volume loss in the left upper lobe Consolidative process in the left lower lobe 1.7 cm x 4.4 cm Patchy opacity in the right lower lobe on the periphery Minimal hilar and mediastinal lymphadenopathy -- Cavitary lesion in the left upper lobe with left lower lobe consolidative process Cavitary lesion in the left upper lobe with a new cavitary lesion likely representing mycetoma Left lower lobe opacity could represent pneumonia versus mucous plugging Respiratory BioFire negative for everything on 05/11/2024 -- COPD with emphysema with acute exacerbation Not on any inhalers at home Recommend either Anoro or Stiolto on discharge --Active smoker > [id number] smoking history --Cocaine use Plan: Nebulized bronchodilators while in the hospital 7% saline with Mucinex and flutter valve Recommend broad-spectrum antibiotic Follow-up nasal MRSA Airborne precautions 2D echo and blood culture if not already done Recommend checking for HIV as well as hepatitis B and C Continue with antibiotics Sputum culture for AFB Case was discussed with primary team Please note the above document was generated using voice recognition software. It may contain grammatical, syntax or spelling errors.Any formal questions or concerns about the content, text or information contained within the body of this dictation should be directly addressed to the provider for clarification. History of Present Illness Attending Physician: Elmer Sparks MD History of Present Illness 59-year-old female present to the hospital for shortness of breath Past medical history: Anxiety, pulmonary emboli, drug abuse, COPD Pulmonary consulted for abnormal chest CT At the time of examination patient had one-to-one sitter She was a bit restless but answering all the questions appropriately. Although she is a poor historian She was saturating 97-98% on 2 L nasal cannula. Denies any chest pain. Shortness of breath is getting better Does complain of cough and has difficulty bringing up the phlegm When she does bring up the phlegm is mostly clear. Denies any nausea or vomiting Has been afebrile No previous history of tuberculosis Never has been incarcerated. No known exposure to tuberculosis Social history: Current smoker, approximately [id number] smoking history. Actively using cocaine. Denies any IV drug use Allergies Allergy/AdvReac Type Severity Reaction Status Date / Time No Known Allergies Allergy Verified 02/26/21 13:08 Home Medications Medication Instructions Recorded Confirmed Type acetaminophen 500 mg tablet 500 mg PO Q6H PRN Pain 05/11/24 05/11/24 History Patient History Medical History Current every day smoker Hypothyroidism Opioid dependence Family History Other Family history non-contributory Social History Smoking Status: Current every day smoker Tobacco Type: Cigarettes Hx Alcohol Use: No Hx Substance Use: Yes (unsure of narcotic name) Non-Prescribed Medications: Crack / Cocaine Last Used Substance: Just Prior to Arrival Preferred Language: [place] Communication Ability: Impaired Mid Level Developer Required: No Beliefs That Will Affect Care: None marital status: Single Current Living Situation: Family Current Living Situation Comment: lives with daughter Feels Safe at Home: Yes Assistive Devices: Denture - Upper Review of Systems 2 Review of Systems: All systems reviewed & are unremarkable except as noted in HPI & below Physical Exam 2 Physical Exam: Constitutional: No acute distress, frail-appearing HEENT: EOMI, PERRLA, poor dentition Respiratory system: Decreased air entry bilaterally, positive expiratory wheeze, positive rhonchi, positive crackles bilateral lower lobes CVS: S1-S2 positive, no murmurs or gallops Abdomen: Soft, nontender, nondistended, positive bowel sounds x4 Extremities: +2 pulses bilaterally radialis/ dorsalis pedis, no cyanosis, no edema Neuro: Awake alert oriented x3 Psych: Normal mood and affect G/U: No Elizabeth Skin: no rashes, warm and dry (Ecchymoses appreciated in bilateral upper extremities ventral surface) Lymphatic: no cervical or axillary lymphadenopathy Results & Data Results & Data Vital Signs (Past 12 Hours) Vital Signs Temp Pulse Pulse Resp BP BP Pulse Ox 05/12/24 07:45 87 05/12/24 07:22 36.5 C 88 18 129/84 100 03/29/25 07:02 16 98 05/12/24 03:31 36.7 C 101 H 18 121/62 95 05/12/24 00:05 90 20 94 05/11/24 23:00 112 H 05/11/24 22:40 36.3 C L 106 H 20 131/78 94 O2 Del Method O2 Flow Rate 05/12/24 07:45 05/12/24 07:22 Nasal Cannula 3 05/12/24 07:02 Nasal Cannula 3 05/12/24 03:31 Nasal Cannula 3 05/12/24 00:05 Nasal Cannula 3 05/11/24 23:00 05/11/24 22:40 Nasal Cannula 3 Laboratory Results 05/12/24 07:06 05/12/24 07:06 PG Care Time/CCT Total # of Minutes Spent Total Time Spent with Patient: Total time spent is greater than 50% in coordination of care (as documented) at patient's floor/unit and/or counseling patient: Coding Level of Care Code 37744 INT INP/OBS CARE 3/75MIN Diagnoses COPD exacerbation J44.1 Cavitary lung disease J98.4 COPD (chronic obstructive pulmonary disease) J44.9 Acute hypoxic respiratory failure J96.01 Current every day smoker F17.200 Cocaine abuse F14.10
[2024-05-12] MEDS: FLUTICASONE/VILANTEROL 200/25MCG 14 PUFFS/INHALER INH SCH (10:31)
--- NOTE | 2024-05-12 11:43 | Electrocardiogram Report ---
Test Reason : Blood Pressure : */* mmHG Vent. Rate : 90 BPM Atrial Rate : 90 BPM P-R Int : 130 ms QRS Dur : 78 ms QT Int : 398 ms P-R-T Axes : 86 76 80 degrees QTcB Int : 486 ms Normal sinus rhythm QTcB >= 480 msec Abnormal ECG When compared with ECG of 11-May-2024 23:53, (unconfirmed) No significant change was found Confirmed by Dilma Perez ([id number]) on 05/12/2024 11:43:20 AM Referred By: NO PCP Confirmed By: Dilma Perez
--- NOTE | 2024-05-12 12:10 | Electrocardiogram Report ---
Test Reason : Blood Pressure : */* mmHG Vent. Rate : 101 BPM Atrial Rate : 101 BPM P-R Int : 136 ms QRS Dur : 76 ms QT Int : 382 ms P-R-T Axes : 79 63 68 degrees QTcB Int : 495 ms Sinus tachycardia Nonspecific ST and T wave abnormality Low voltage QRS QTcB >= 480 msec Abnormal ECG When compared with ECG of 11-May-2024 21:06, (unconfirmed) Nonspecific T wave abnormality no longer evident in Lateral leads Confirmed by Dilma Perez ([id number]) on 05/12/2024 12:10:33 PM Referred By: NO PCP Confirmed By: Dilma Perez
--- NOTE | 2024-05-12 12:21 | Electrocardiogram Report ---
Test Reason : Blood Pressure : */* mmHG Vent. Rate : 113 BPM Atrial Rate : 113 BPM P-R Int : 120 ms QRS Dur : 72 ms QT Int : 360 ms P-R-T Axes : 91 78 85 degrees QTcB Int : 493 ms Sinus tachycardia Nonspecific ST and T wave abnormality Low voltage QRS Abnormal ECG When compared with ECG of 11-May-2024 12:55, No significant change was found Confirmed by Dilma Perez (Supa) on 05/12/2024 12:20:37 PM Referred By: NO PCP Confirmed By: Dilma Perez
[2024-05-12] MEDS: FORMOTEROL 20 MCG/2 ML VIAL NEB SCH (13:21)
[2024-05-12] MEDS: BUDESONIDE 0.5 MG/2 ML VIAL (PULMICORT) NEB SCH (13:21)
[2024-05-12 15:08] LABS: Albumin Globulin Ratio 0.9 (0.9-2); Albumin Level 3.3 gm/dl (3.4-5.0); BUN Creatinine Ratio 18.8 (10-20); Bilirubin Direct 0.1 mg/dl (0-0.2); Bilirubin,Total 0.3 mg/dl (0.2-1.0); Calcium 7.8 mg/dl (8.6-10.3); Creatinine Clr Calc Pharmacy 61.7 ml/min; Globulin 3.6 gm/dl (2.5-4.0); Potassium 3.8 mmol/L (3.5-5.1); Total Protein 6.9 gm/dl (6.0-8.3); Total Protein 7.3 gm/dl (6.0-8.3)
[2024-05-12 15:17] LABS: INR 1.1 (0.9-1.1); Prothrombin Time 11.9 Seconds (9.0-12.0)
[2024-05-12] MEDS: SODIUM CHLOR 7% 4 ML NEB NEB SCH (19:31)
[2024-05-12 21:40] LABS: Albumin Level 3.3 gm/dl (3.4-5.0); Bilirubin,Total 0.3 mg/dl (0.2-1.0); Total Protein 7.1 gm/dl (6.0-8.3)
[2024-05-13 06:48] LABS: Hematocrit (blood only) 33.2 % (37.0-47.0); Hemoglobin 10.6 g/dl (12.0-16.0); Mean Corpuscular Hemoglobin 31.3 pg (25.0-34.0); Mean Corpuscular Hgb Conc 31.9 g/dL (32.0-36.0); Mean Corpuscular Volume 97.9 fL (80.0-100.0); Mean Platelet Volume 8.4 fL (9.4-12.4); Platelet Count 460 K/uL (130-400); RDW Coefficient of Variation 16.3 % (11.5-14.5); RDW Standard Deviation 58.1 fL (36.4-46.3); Red Blood Count 3.39 M/uL (4.20-5.40); White Blood Count 24.53 K/ul (4.8-10.8)
[2024-05-13 07:12] LABS: Basophils # (auto) 0.04 K/uL (0.00-0.20); Basophils % (auto) 0.2 %; Immature Granulocytes # (auto) 0.16 K/uL (0.01-0.20); Immature Granulocytes % (auto) 0.7 %; Lymphocytes # (auto) 1.39 K/uL (1.20-3.40); Lymphocytes % (auto) 5.7 %; Monocytes # (auto) 1.03 K/uL (0.11-0.59); Monocytes % (auto) 4.2 %; Neutrophils # (auto) 21.91 K/uL (1.40-6.50); Neutrophils % (auto) 89.2 %
[2024-05-13 07:18] LABS: BUN Creatinine Ratio 16.7 (10-20); Calcium 8.2 mg/dl (8.6-10.3); Creatinine Clr Calc Pharmacy 58.8 ml/min; Potassium 3.8 mmol/L (3.5-5.1)
--- NOTE | 2024-05-13 11:56 | Pulmonology Progress Note ---
Date of Service May 13, 2024 Assessment & Plan (1) COPD exacerbation: (2) Cavitary lung disease: (3) COPD (chronic obstructive pulmonary disease): (4) Acute hypoxic respiratory failure: (5) Current every day smoker: (6) Cocaine abuse: Plan CT chest 05/11/2024 personally reviewed: Motion degraded study Cavitary lesion in the left upper lobe with possible Volume loss in the left upper lobe Consolidative process in the left lower lobe 1.7 cm x 4.4 cm Patchy opacity in the right lower lobe on the periphery Minimal hilar and mediastinal lymphadenopathy 2D echo 05/12/2024: EF 65-70%, RV normal in size and function -- Cavitary lesion in the left upper lobe with left lower lobe consolidative process Cavitary lesion in the left upper lobe with a new cavitary lesion likely representing mycetoma --> new compared to chest x-ray 03/2022 Left lower lobe opacity could represent pneumonia versus mucous plugging Denies any known exposure tuberculosis, never has been incarcerated. Respiratory BioFire negative for everything on 05/11/2024 Nasal MRSA negative Chest x-ray from 03/29/2022 did not show any abnormality in the left upper lobe -- COPD with emphysema with acute exacerbation Not on any inhalers at home Recommend either Anoro or Stiolto on discharge --Active smoker > 13-vmaw-dpic smoking history --Cocaine use Plan: Continue with nebulized bronchodilators along with 7% saline and flutter valve Add Mucinex to her regimen Patient is still requiring oxygen. Try to keep O2 saturation between 90-92% Continue with Airborne precautions Follow-up HIV as well as hepatitis B and C Continue with antibiotics Follow-up sputum culture and AFB, and patient is not able to bring up sputum then bronchoscopy to be considered for tomorrow Case was discussed with primary team as well as RN at bedside Please note the above document was generated using voice recognition software. It may contain grammatical, syntax or spelling errors.Any formal questions or concerns about the content, text or information contained within the body of this dictation should be directly addressed to the provider for clarification. Admission and Anticipated Discharge Date Admission Date: May 11, 2024 Subjective Patient seen and examined at bedside. No acute distress, no adverse events overnight Patient's family was in the room which included son as well as niece Patient stated that she is feeling a little better compared to when she came to the hospital She was a little bit woozy given that she got lorazepam earlier in the day for anxiety She has been coughing but unfortunately not able to bring up any phlegm Fair appetite, no nausea or vomiting Denies any headache, no chest pain Review of Systems 2 Review of Systems: All systems reviewed & are unremarkable except as noted in Subjective Physical Exam 2 Physical Exam: Constitutional: No acute distress, frail-appearing HEENT: EOMI, PERRLA, poor dentition Respiratory system: Decreased air entry bilaterally, no wheeze, no rhonchi, positive crackles left upper lobe anteriorly CVS: S1-S2 positive, no murmurs or gallops Abdomen: Soft, nontender, nondistended, positive bowel sounds x4 Extremities: +2 pulses bilaterally radialis/ dorsalis pedis, no cyanosis, no edema Neuro: Awake alert oriented x3 Psych: Normal mood and affect G/U: No Elizabeth Skin: no rashes, warm and dry (Ecchymoses appreciated in bilateral upper extremities ventral surface) Lymphatic: no cervical or axillary lymphadenopathy Results & Data Results & Data Vital Signs (Past 12 Hours) Vital Signs Temp Pulse Resp BP Pulse Ox O2 Del Method O2 Flow Rate 05/13/24 11:26 36.8 C 93 H 17 135/84 92 Nasal Cannula 1.5 05/13/24 08:00 Room Air 05/13/24 07:11 90 18 93 Nasal Cannula 1 05/13/24 03:26 36.6 C 86 16 129/76 98 Nasal Cannula 1 05/13/24 02:01 91 H 18 99 Nasal Cannula 2 05/13/24 00:30 Nasal Cannula 2 Laboratory Results 05/13/24 06:31 05/13/24 06:31 PG Care Time/CCT Total # of Minutes Spent Total Time Spent with Patient: Total time spent is greater than 50% in coordination of care (as documented) at patient's floor/unit and/or counseling patient: Coding Level of Care Code 44047 SUB INP/OBS CARE 3/50MIN Diagnoses COPD exacerbation J44.1 Cavitary lung disease J98.4 COPD (chronic obstructive pulmonary disease) J44.9 Acute hypoxic respiratory failure J96.01 Current every day smoker F17.200 Cocaine abuse F14.10
--- NOTE | 2024-05-13 13:25 | Hospitalist Progress Note ---
Date of Service May 13, 2024 Assessment & Plan (1) Acute hypoxic respiratory failure: (2) Cavitary pneumonia: (3) Cocaine withdrawal: (4) Sepsis: (5) Acetaminophen overdose: (6) COPD with exacerbation: (7) COPD (chronic obstructive pulmonary disease): (8) Cocaine abuse: (9) Bronchiectasis: (10) Pneumonia: (11) Current every day smoker: (12) Elevated LFTs: (13) Hypothyroidism: Plan This is a 59 yr old F who has a significant PMH of drug abuse, tobacco abuse, CO PD, anxiety and pulmonary embolism who presents to ED 2/2 SOB x 1 day. #Acute Hypoxic resp failure #Possible Sepsis #COPD Exacerbation #Multifocal PNA #Bronchiectasis #Cavitary lesion Pt presents with increasing SOB and productive cough. As per report, patient stopped all her medication 5 months ago. Prescription history does not show any medication --CT chest on admission No pulmonary emboli.2. Severe pulmonary emphysema with mucous plugging and probable bronchitis with multifocal infectious or inflammatory pneumonitis/bronchiolitis.3. Small loculated left apical pleural effusion with mild mediastinal and hilar lymphadenopathy.4. Volume loss with fibrosis and bronchiectasis of the left lung apex with 5.4 cm cavitation containing a 3.7 cm soft tissue density structure. This may represent a mycetoma however could be evaluated with bronchoscopy to exclude bronchogenic malignancy.5. Additional indeterminate ovoid tubular opacity of the superior segment left lower lobe measuring 4.4 cm. Follow-up is needed. Continue antibiotics IV cefepime and doxy; treat for 5 to 7 days on budesonide and formoterol nebulizer; continue on [id number] DuoNeb. Further valve, incentive spirometry. Steroid for 5 days Pulmonology consulted; Recommend nebulized bronchodilators, hypertonic saline nebs and broad-spectrum antibiotic. Discussed with the patient on 05/13 to obtain consent for HIV testing; patient reported that she does not want to do the test. Discussed with radiology to obtain images from [facility] to compare prior images; awaiting reply. Discussed with patient's family as well to obtain prior medical records; they will try to bring it to the hospital so that it can be scanned into the system. #Known Drug use #?Cocaine/Amphetamine use - pt reports snorting 2 lines a day for the past week #Cement Gun Operator use - consists of 300mg caffeine and green tea extract (can cause LFT elevated potentially per poison control) Patient had code purple on 05/11 for increased agitation and restlessness. Suspected to have withdrawal; was given IV Ativan. Monitor for withdrawal #Elevated LFTS; AST 126, ALT 73, ALP 105 on admision pt reports tylenol prn use; unknown amount Tylenol level less than 3 Poison control recommended NAC protocol which patient completed MalnutritionBMI of 16.9 kg/m; started on nutritional supplements #Tobacco abuse nicotine patch ordered #Hx of PE: off blood thinners; CTA doesn't show PE #Hypothyroidism: TSH 38.9, T4 0.33, will start levothyroxine 50mcg for now, will need repeat tsh in 4 weeks, pt previously with hypothyroidism and stopped taking her medications, in 2021 tsh 13 #DVT ppx: SQ Heparin Time spent evaluating patient, direct bedside care, chart review, placing orders, interpretation of diagnostic studies, discussion with consultants, patient, and family members, as well as other required patient management activities is 50 minutes Please note the above document was generated using voice recognition software. It may contain grammatical, syntax or spelling errors. Any formal questions or concerns about the content, text or information contained within the body of this dictation should be directly addressed to the provider for clarification Admission and Anticipated Discharge Date Admission Date: May 11, 2024 Subjective Patient seen and examined at bedside. She reports that her breathing is slightly better compared to yesterday. No significant events overnight Review of Systems Review of Systems: All systems reviewed & are unremarkable except as noted in Subjective Physical Exam Physical Exam: Constitutional: WD/WN, vitals as above, NAD, sitting up in bed, pleasant, conversing easily Respiratory: normal respiratory effort, lungs clear to auscultation, no wheeze, rales, rhonchi. Normal insp/exp effort, no accessory muscle use Cardiovascular: RRR, no murmur, no edema Vessels: no JVD or carotid bruit Chest: Bilateral decreased air entry. Occasional wheeze Abdomen: normal bowel sounds, soft, nontender, no hepatosplenomegaly Musculoskeletal: no cyanosis or clubbing, extremities motor strength 5/5 Skin: no rashes, warm and dry normal turgor Neurologic: PERRL, EOMI, accommodation nl, no face palsy, no dysarthria CN's II- XI intact bilaterally and moves all extremities Psychiatric: A+Ox3, euthymic affect Results & Data Results & Data Vital Signs (Past 12 Hours) Vital Signs Temp Pulse Resp BP Pulse Ox O2 Del Method O2 Flow Rate 05/13/24 11:26 36.8 C 93 H 17 135/84 92 Nasal Cannula 1.5 05/13/24 08:00 Room Air 05/13/24 07:11 90 18 93 Nasal Cannula 1 05/13/24 03:26 36.6 C 86 16 129/76 98 Nasal Cannula 1 05/13/24 02:01 91 H 18 99 Nasal Cannula 2 (10) Pneumonia Laterality: bilateral Lung location: unspecified part of lung Pneumonia type: due to unspecified organism Qualified Code(s): J18.9 - Pneumonia, unspecified organism (13) Hypothyroidism Hypothyroidism type: unspecified Qualified Code(s): E03.9 - Hypothyroidism, unspecified
--- NOTE | 2024-05-13 14:00 | Electrocardiogram Report ---
Test Reason : Blood Pressure : */* mmHG Vent. Rate : 103 BPM Atrial Rate : 103 BPM P-R Int : 126 ms QRS Dur : 74 ms QT Int : 352 ms P-R-T Axes : 89 79 78 degrees QTcB Int : 461 ms Sinus tachycardia Low voltage QRS Nonspecific T wave abnormality Abnormal ECG When compared with ECG of 12-May-2024 05:42, No significant change was found Confirmed by Dilma Perez (Supa) on 05/13/2024 2:00:09 PM Referred By: NO PCP Confirmed By: Dilma Perez
[2024-05-13] MEDS: CEFEPIME 2000MG 2,000 MG/20 ML SYR IV SCH (18:24)
[2024-05-13] MEDS ORDERED: CEFEPIME 2000MG 2,000 MG/20 ML SYR IV SCH (19:00)
[2024-05-13] MEDS: guaiFENesin 600 MG TABCR PO SCH (21:35)
[2024-05-14 06:28] LABS: Basophils # (auto) 0.02 K/uL (0.00-0.20); Basophils % (auto) 0.1 %; Hematocrit (blood only) 32.9 % (37.0-47.0); Hemoglobin 10.8 g/dl (12.0-16.0); Immature Granulocytes # (auto) 0.15 K/uL (0.01-0.20); Immature Granulocytes % (auto) 0.9 %; Lymphocytes # (auto) 1.67 K/uL (1.20-3.40); Lymphocytes % (auto) 9.7 %; Mean Corpuscular Hemoglobin 31.7 pg (25.0-34.0); Mean Corpuscular Hgb Conc 32.8 g/dL (32.0-36.0); Mean Corpuscular Volume 96.5 fL (80.0-100.0); Mean Platelet Volume 8.5 fL (9.4-12.4); Monocytes # (auto) 1.14 K/uL (0.11-0.59); Monocytes % (auto) 6.6 %; Neutrophils % (auto) 82.7 %; Platelet Count 453 K/uL (130-400); RDW Coefficient of Variation 16.4 % (11.5-14.5); RDW Standard Deviation 57.6 fL (36.4-46.3); Red Blood Count 3.41 M/uL (4.20-5.40); White Blood Count 17.18 K/ul (4.8-10.8)
[2024-05-14 06:56] LABS: BUN Creatinine Ratio 25.8 (10-20); Calcium 8.5 mg/dl (8.6-10.3); Creatinine Clr Calc Pharmacy 58.8 ml/min; Potassium 3.4 mmol/L (3.5-5.1)
[2024-05-14] MEDS: POTASSIUM CHLORIDE / WTR 10 MEQ/100 ML PLCT IV SCH (08:08)
--- NOTE | 2024-05-14 09:10 | Hospitalist Progress Note ---
Date of Service May 14, 2024 Assessment & Plan (1) Acute hypoxic respiratory failure: (2) Cavitary pneumonia: (3) Cocaine withdrawal: (4) Sepsis: (5) Acetaminophen overdose: (6) COPD with exacerbation: (7) COPD (chronic obstructive pulmonary disease): (8) Cocaine abuse: (9) Bronchiectasis: (10) Pneumonia: (11) Current every day smoker: (12) Elevated LFTs: (13) Hypothyroidism: Plan This is a 59 yr old F who has a significant PMH of drug abuse, tobacco abuse, CO PD, anxiety and pulmonary embolism who presents to ED 2/2 SOB x 1 day. #Acute Hypoxic resp failure #Possible Sepsis #COPD Exacerbation #Multifocal PNA #Bronchiectasis #Cavitary lesion Pt presents with increasing SOB and productive cough. As per report, patient stopped all her medication 5 months ago. Prescription history does not show any medication --CT chest on admission No pulmonary emboli.2. Severe pulmonary emphysema with mucous plugging and probable bronchitis with multifocal infectious or inflammatory pneumonitis/bronchiolitis.3. Small loculated left apical pleural effusion with mild mediastinal and hilar lymphadenopathy.4. Volume loss with fibrosis and bronchiectasis of the left lung apex with 5.4 cm cavitation containing a 3.7 cm soft tissue density structure. This may represent a mycetoma however could be evaluated with bronchoscopy to exclude bronchogenic malignancy.5. Additional indeterminate ovoid tubular opacity of the superior segment left lower lobe measuring 4.4 cm. Follow-up is needed. Continue antibiotics IV zosyn and doxy; treat for 5 to 7 days on budesonide and formoterol nebulizer; continue on [id number] DuoNeb. Further valve, incentive spirometry. Steroid for 5 days Pulmonology consulted; Recommend nebulized bronchodilators, hypertonic saline nebs and broad-spectrum antibiotic. Discussed with the patient on 05/13 to obtain consent for HIV testing; patient reported that she does not want to do the test. Discussed with radiology to obtain images from [facility] to compare prior images; awaiting reply. Discussed with patient's family as well to obtain prior medical records; they will try to bring it to the hospital so that it can be scanned into the system. However, upon discussion on 05/14/2024; she was not able to find any documents. Infectious disease consulted for comanagement. #Known Drug use #?Cocaine/Amphetamine use - pt reports snorting 2 lines a day for the past week #Supervisor Prop Making use - consists of 300mg caffeine and green tea extract (can cause LFT elevated potentially per poison control) Patient had code purple on 05/11 for increased agitation and restlessness. Suspected to have withdrawal; was given IV Ativan. Monitor for withdrawal #Elevated LFTS; AST 126, ALT 73, ALP 105 on admision pt reports tylenol prn use; unknown amount Tylenol level less than 3 Poison control recommended NAC protocol which patient completed MalnutritionBMI of 16.9 kg/m; started on nutritional supplements #Tobacco abuse nicotine patch ordered #Hx of PE: off blood thinners; CTA doesn't show PE #Hypothyroidism: TSH 38.9, T4 0.33, will start levothyroxine 50mcg for now, will need repeat tsh in 4 weeks, pt previously with hypothyroidism and stopped taking her medications, in 2021 tsh 13 #DVT ppx: SQ Heparin Time spent evaluating patient, direct bedside care, chart review, placing orders, interpretation of diagnostic studies, discussion with consultants, patient, and family members, as well as other required patient management activities is 50 minutes Please note the above document was generated using voice recognition software. It may contain grammatical, syntax or spelling errors. Any formal questions or concerns about the content, text or information contained within the body of this dictation should be directly addressed to the provider for clarification Admission and Anticipated Discharge Date Admission Date: May 11, 2024 Subjective Patient seen and examined at bedside. Comfortable; not in distress. Denies fever, chills, chest pain, shortness of breath, abdominal pain or urinary symptoms. No significant overnight events Review of Systems Review of Systems: All systems reviewed & are unremarkable except as noted in Subjective Physical Exam Physical Exam: Constitutional: WD/WN, vitals as above, NAD, sitting up in bed, pleasant, conversing easily Respiratory: normal respiratory effort, lungs clear to auscultation, no wheeze, rales, rhonchi. Normal insp/exp effort, no accessory muscle use Cardiovascular: RRR, no murmur, no edema Vessels: no JVD or carotid bruit Chest: Bilateral decreased air entry. Occasional wheeze Abdomen: normal bowel sounds, soft, nontender, no hepatosplenomegaly Musculoskeletal: no cyanosis or clubbing, extremities motor strength 5/5 Skin: no rashes, warm and dry normal turgor Neurologic: PERRL, EOMI, accommodation nl, no face palsy, no dysarthria CN's II- XI intact bilaterally and moves all extremities Psychiatric: A+Ox3, euthymic affect Results & Data Results & Data Vital Signs (Past 12 Hours) Vital Signs Temp Pulse Pulse Resp BP Pulse Ox O2 Del Method 05/14/24 08:45 88 05/14/24 07:14 81 18 97 Nasal Cannula 05/14/24 07:00 36.5 C 97 H 16 130/67 100 Nebulizer 05/14/24 04:43 36.4 C L 86 16 127/76 90 Nasal Cannula 05/14/24 01:05 88 16 96 Nasal Cannula 05/14/24 00:15 36.7 C 89 16 129/78 97 Nasal Cannula 05/13/24 21:45 101 H O2 Flow Rate 05/14/24 08:45 05/14/24 07:14 1 05/14/24 07:00 05/14/24 04:43 1 05/14/24 01:05 1 05/14/24 00:15 1 05/13/24 21:45 (10) Pneumonia Laterality: bilateral Lung location: unspecified part of lung Pneumonia type: due to unspecified organism Qualified Code(s): J18.9 - Pneumonia, unspecified organism (13) Hypothyroidism Hypothyroidism type: unspecified Qualified Code(s): E03.9 - Hypothyroidism, unspecified
[2024-05-14 09:17] LABS: Hep B Surface Ag with confirm Negative (Negative)
[2024-05-14 09:22] LABS: Hep C Ab Rflx HepCQuant RNA Negative (Negative)
--- NOTE | 2024-05-14 12:00 | Pulmonology Progress Note ---
Date of Service May 14, 2024 Assessment & Plan (1) COPD exacerbation: (2) Cavitary lung disease: (3) COPD (chronic obstructive pulmonary disease): (4) Acute hypoxic respiratory failure: (5) Current every day smoker: (6) Cocaine abuse: Plan CT chest 05/11/2024 personally reviewed: Motion degraded study Cavitary lesion in the left upper lobe with possible Volume loss in the left upper lobe Consolidative process in the left lower lobe 1.7 cm x 4.4 cm Patchy opacity in the right lower lobe on the periphery Minimal hilar and mediastinal lymphadenopathy 2D echo 05/12/2024: EF 65-70%, RV normal in size and function -- Cavitary lesion in the left upper lobe with left lower lobe consolidative process Cavitary lesion in the left upper lobe with a new cavitary lesion likely representing mycetoma --> new compared to chest x-ray 03/2022 Left lower lobe opacity could represent pneumonia versus mucous plugging Denies any known exposure tuberculosis, never has been incarcerated. Respiratory BioFire negative for everything on 05/11/2024 Nasal MRSA negative Chest x-ray from 03/29/2022 did not show any abnormality in the left upper lobe -- COPD with emphysema with acute exacerbation Not on any inhalers at home Recommend either Anoro or Stiolto on discharge --Active smoker > 30-bkyt-adov smoking history --Cocaine use Plan: Patient's daughter indicates that the patient had a bronchoscopy in 2021 for similar issues including cavitary lesion and also had a CT scan of her chest. She was followed by [facility] pulmonary medicine. Requesting these records at this time. High likelihood that the cavitary lesion represents an aspergilloma or mycetoma. Requesting ID consult. Will follow-up on her Farren gold testing and AFB sputum analysis. A QuantiFERON gold testing is negative, would recommend outpatient bronchoscopy with patient's primary route inspector to evaluate for infectious/malignant etiology. Recommend transitioning from cefepime to Zosyn to cover for anaerobes. Will defer to primary team and ID. Pulmonary to continue to follow. Thank you for the consult. Admission and Anticipated Discharge Date Admission Date: May 11, 2024 Subjective Patient seen examined. Saturating well on low-flow oxygen. Has cough productive sputum. Denies hemoptysis. No chest pain. Hungry and wanting to take a drink of water. Review of Systems Review of Systems: All systems reviewed & are unremarkable except as noted in HPI & below Physical Exam Physical Exam: Constitutional: No acute distress, frail-appearing HEENT: EOMI, PERRLA, poor dentition Respiratory system: Decreased air entry bilaterally, no wheeze, no rhonchi, positive crackles left upper lobe anteriorly CVS: S1-S2 positive, no murmurs or gallops Abdomen: Soft, nontender, nondistended, positive bowel sounds x4 Extremities: +2 pulses bilaterally radialis/ dorsalis pedis, no cyanosis, no edema Neuro: Awake alert oriented x3 Psych: Normal mood and affect G/U: No Elizabeth Skin: no rashes, warm and dry (Ecchymoses appreciated in bilateral upper extremities ventral surface) Lymphatic: no cervical or axillary lymphadenopathy Results & Data Results & Data Vital Signs (Past 12 Hours) Vital Signs Temp Pulse Pulse Resp BP Pulse Ox O2 Del Method 05/14/24 10:45 36.6 C 80 18 133/64 96 Nasal Cannula 05/14/24 08:45 88 05/14/24 08:00 Nasal Cannula 05/14/24 07:14 81 18 97 Nasal Cannula 05/14/24 07:00 36.5 C 97 H 16 130/67 100 Nebulizer 05/14/24 04:43 36.4 C L 86 16 127/76 90 Nasal Cannula 05/14/24 01:05 88 16 96 Nasal Cannula 05/14/24 00:15 36.7 C 89 16 129/78 97 Nasal Cannula O2 Flow Rate 05/14/24 10:45 05/14/24 08:45 05/14/24 08:00 1 05/14/24 07:14 1 05/14/24 07:00 05/14/24 04:43 1 05/14/24 01:05 1 05/14/24 00:15 1 PG Care Time/CCT Total # of Minutes Spent Total Time Spent with Patient: Total time spent is greater than 50% in coordination of care (as documented) at patient's floor/unit and/or counseling patient: Coding Level of Care Code 18599 SUB INP/OBS CARE 2/35MIN Diagnoses COPD exacerbation J44.1 Cavitary lung disease J98.4 COPD (chronic obstructive pulmonary disease) J44.9 Acute hypoxic respiratory failure J96.01 Current every day smoker F17.200 Cocaine abuse F14.10
[2024-05-15 06:37] LABS: Basophils # (auto) 0.02 K/uL (0.00-0.20); Basophils % (auto) 0.1 %; Eosinophils # (auto) 0.15 K/uL (0.00-0.50); Eosinophils % (auto) 0.8 %; Hematocrit (blood only) 35.6 % (37.0-47.0); Hemoglobin 11.5 g/dl (12.0-16.0); Immature Granulocytes # (auto) 0.19 K/uL (0.01-0.20); Mean Corpuscular Hemoglobin 31.4 pg (25.0-34.0); Mean Corpuscular Hgb Conc 32.3 g/dL (32.0-36.0); Mean Corpuscular Volume 97.3 fL (80.0-100.0); Mean Platelet Volume 8.4 fL (9.4-12.4); Monocytes # (auto) 1.38 K/uL (0.11-0.59); Monocytes % (auto) 7.5 %; Neutrophils # (auto) 14.46 K/uL (1.40-6.50); Neutrophils % (auto) 78.6 %; Platelet Count 467 K/uL (130-400); RDW Standard Deviation 59.7 fL (36.4-46.3); Red Blood Count 3.66 M/uL (4.20-5.40)
[2024-05-15 07:09] LABS: BUN Creatinine Ratio 28.4 (10-20); Calcium 8.6 mg/dl (8.6-10.3); Potassium 3.7 mmol/L (3.5-5.1)
--- NOTE | 2024-05-15 08:17 | Hospitalist Progress Note ---
Date of Service May 15, 2024 Assessment & Plan (1) Acute hypoxic respiratory failure: (2) Cavitary pneumonia: (3) Cocaine withdrawal: (4) Sepsis: (5) Acetaminophen overdose: (6) COPD with exacerbation: (7) COPD (chronic obstructive pulmonary disease): (8) Cocaine abuse: (9) Bronchiectasis: (10) Pneumonia: (11) Current every day smoker: (12) Elevated LFTs: (13) Hypothyroidism: Plan This is a 59 yr old F who has a significant PMH of drug abuse, tobacco abuse, COPD, anxiety and pulmonary embolism who presents to ED 2/2 SOB x 1 day. #Acute Hypoxic resp failure #Possible Sepsis #COPD Exacerbation #Multifocal PNA #Bronchiectasis #Cavitary lesion Pt presents with increasing SOB and productive cough. As per report, patient stopped all her medication 5 months ago. Prescription history does not show any medication --CT chest on admission No pulmonary emboli.2. Severe pulmonary emphysema with mucous plugging and probable bronchitis with multifocal infectious or inflammatory pneumonitis/bronchiolitis.3. Small loculated left apical pleural effusion with mild mediastinal and hilar lymphadenopathy.4. Volume loss with fibrosis and bronchiectasis of the left lung apex with 5.4 cm cavitation containing a 3.7 cm soft tissue density structure. This may represent a mycetoma however could be evaluated with bronchoscopy to exclude bronchogenic malignancy.5. Additional indeterminate ovoid tubular opacity of the superior segment left lower lobe measuring 4.4 cm. Follow-up is needed. Continue antibiotics IV zosyn and doxy; treat for 5 to 7 days on budesonide and formoterol nebulizer; continue on [id number] DuoNeb. Further valve, incentive spirometry. Steroid for 5 days Pulmonology consulted; Recommend nebulized bronchodilators, hypertonic saline nebs and broad-spectrum antibiotic. Discussed with the patient on 05/13 to obtain consent for HIV testing; patient reported that she does not want to do the test. Discussed with radiology to obtain images from [facility] to compare prior images; awaiting reply. Discussed on 05/15/2024. Discussed with patient's family as well to obtain prior medical records; they will try to bring it to the hospital so that it can be scanned into the system. However, upon discussion on 05/14/2024; she was not able to find any documents. [facility] records obtained on 05/15. Patient was hospitalized at [facility] in March of 2021. CTA of the chest at that time showed cystic mass in left lower lobe and 2 cavitary lesion in right lower lobe. She was also found to have PE involving right lower lobe and segmental pulmonary arteries. Patient had undergone bronchoscopy; found to have copious mucopurulent secretion throughout the left tracheobronchial tree..Bronchial washing was negative for malignancy. Appreciate pulmonology recommendation Infectious disease consulted as per recommendation by pulmonology for recommendation regarding antibiotic duration and choice. #Known Drug use #?Cocaine/Amphetamine use - pt reports snorting 2 lines a day for the past week #Medtronics Technician use - consists of 300mg caffeine and green tea extract (can cause LFT elevated potentially per poison control) Patient had code purple on 05/11 for increased agitation and restlessness. Suspected to have withdrawal; was given IV Ativan. Monitor for withdrawal #Elevated LFTS; AST 126, ALT 73, ALP 105 on admision pt reports tylenol prn use; unknown amount Tylenol level less than 3 Poison control recommended NAC protocol which patient completed MalnutritionBMI of 16.9 kg/m; started on nutritional supplements #Tobacco abuse nicotine patch ordered #Hx of PE: off blood thinners; CTA doesn't show PE #Hypothyroidism: TSH 38.9, T4 0.33, will start levothyroxine 50mcg for now, will need repeat tsh in 4 weeks, pt previously with hypothyroidism and stopped taking her medications, in 2021 tsh 13 #DVT ppx: SQ Heparin Time spent evaluating patient, direct bedside care, chart review, placing orders, interpretation of diagnostic studies, discussion with consultants, patient, and family members, as well as other required patient management activities is 50 minutes Please note the above document was generated using voice recognition software. It may contain grammatical, syntax or spelling errors. Any formal questions or concerns about the content, text or information contained within the body of this dictation should be directly addressed to the provider for clarification Admission and Anticipated Discharge Date Admission Date: May 11, 2024 Subjective Patient seen and examined at bedside. She is comfortable; oxygen requirement has improved She is no longer in respiratory distress Review of Systems Review of Systems: All systems reviewed & are unremarkable except as noted in Subjective Physical Exam Physical Exam: Constitutional: WD/WN, vitals as above, NAD, sitting up in bed, pleasant, conversing easily Respiratory: normal respiratory effort, lungs clear to auscultation, no wheeze, rales, rhonchi. Normal insp/exp effort, no accessory muscle use Cardiovascular: RRR, no murmur, no edema Vessels: no JVD or carotid bruit Chest: Bilateral decreased air entry. Occasional wheeze Abdomen: normal bowel sounds, soft, nontender, no hepatosplenomegaly Musculoskeletal: no cyanosis or clubbing, extremities motor strength 5/5 Skin: no rashes, warm and dry normal turgor Neurologic: PERRL, EOMI, accommodation nl, no face palsy, no dysarthria CN's II- XI intact bilaterally and moves all extremities Psychiatric: A+Ox3, euthymic affect Results & Data Results & Data Vital Signs (Past 12 Hours) Vital Signs Temp Pulse Pulse Resp BP Pulse Ox O2 Del Method 05/15/24 07:34 101 H 18 95 Nasal Cannula 05/15/24 07:13 36.7 C 99 H 17 132/82 96 Nasal Cannula 05/15/24 02:44 36.7 C 86 17 126/86 96 Nasal Cannula 05/15/24 01:49 95 H 18 92 Nasal Cannula 05/14/24 22:41 36.9 C 76 18 133/66 96 Nasal Cannula 05/14/24 21:43 101 H 05/14/24 21:00 Nasal Cannula O2 Flow Rate 05/15/24 07:34 1 05/15/24 07:13 1 05/15/24 02:44 1 05/15/24 01:49 1 05/14/24 22:41 1 05/14/24 21:43 05/14/24 21:00 1 (10) Pneumonia Laterality: bilateral Lung location: unspecified part of lung Pneumonia type: due to unspecified organism Qualified Code(s): J18.9 - Pneumonia, unspecified organism (13) Hypothyroidism Hypothyroidism type: unspecified Qualified Code(s): E03.9 - Hypothyroidism, unspecified
--- NOTE | 2024-05-15 09:25 | Pulmonology Progress Note ---
Date of Service May 15, 2024 Assessment & Plan (1) COPD exacerbation: (2) Cavitary lung disease: (3) Acute hypoxic respiratory failure: (4) Current every day smoker: (5) Cocaine abuse: Plan CT chest 05/11/2024 personally reviewed: Motion degraded study Cavitary lesion in the left upper lobe with possible Volume loss in the left upper lobe Consolidative process in the left lower lobe 1.7 cm x 4.4 cm Patchy opacity in the right lower lobe on the periphery Minimal hilar and mediastinal lymphadenopathy 2D echo 05/12/2024: EF 65-70%, RV normal in size and function -- Cavitary lesion in the left upper lobe with left lower lobe consolidative process Cavitary lesion in the left upper lobe with a new cavitary lesion likely representing mycetoma --> new compared to chest x-ray 03/2022 Left lower lobe opacity could represent pneumonia versus mucous plugging Denies any known exposure tuberculosis, never has been incarcerated. Respiratory BioFire negative for everything on 05/11/2024 Nasal MRSA negative Chest x-ray from 03/29/2022 did not show any abnormality in the left upper lobe -- COPD with emphysema with acute exacerbation Not on any inhalers at home Recommend either Anoro or Stiolto on discharge --Active smoker > 73-muug-quey smoking history --Cocaine use Plan: Patient's daughter indicates that the patient had a bronchoscopy in 2021 for similar issues including cavitary lesion and also had a CT scan of her chest. She was followed by [facility] pulmonary medicine. Requesting these records at this time. High likelihood that the cavitary lesion represents an aspergilloma or mycetoma. Requesting ID consult. Will follow-up on her QuantiFERON gold testing and AFB sputum analysis. A QuantiFERON gold testing is negative, would recommend outpatient bronchoscopy with patient's primary core manager to evaluate for infectious/malignant etiology. Recommend transitioning from cefepime to Zosyn to cover for anaerobes. Will defer to primary team and ID. She will need to follow-up outpatient CT chest in about 6 weeks. She can follow-up with Dr. Prakash in the clinic around that time. Pulmonary to continue to follow. Thank you for the consult. Admission and Anticipated Discharge Date Admission Date: May 11, 2024 Subjective Patient will less cough and shortness of breath this morning. No hemoptysis. She feels that she is improving from a respiratory standpoint. Review of Systems Review of Systems: All systems reviewed & are unremarkable except as noted in HPI & below Physical Exam Physical Exam: Constitutional: No acute distress, frail-appearing HEENT: EOMI, PERRLA, poor dentition Respiratory system: Decreased air entry bilaterally, no wheeze, no rhonchi, positive crackles left upper lobe anteriorly CVS: S1-S2 positive, no murmurs or gallops Abdomen: Soft, nontender, nondistended, positive bowel sounds x4 Extremities: +2 pulses bilaterally radialis/ dorsalis pedis, no cyanosis, no edema Neuro: Awake alert oriented x3 Psych: Normal mood and affect G/U: No Elizabeth Skin: no rashes, warm and dry (Ecchymoses appreciated in bilateral upper extremities ventral surface) Lymphatic: no cervical or axillary lymphadenopathy Results & Data Results & Data Vital Signs (Past 12 Hours) Vital Signs Temp Pulse Pulse Resp BP Pulse Ox O2 Del Method 05/15/24 07:34 101 H 18 95 Nasal Cannula 05/15/24 07:13 36.7 C 99 H 17 132/82 96 Nasal Cannula 05/15/24 02:44 36.7 C 86 17 126/86 96 Nasal Cannula 05/15/24 01:49 95 H 18 92 Nasal Cannula 05/14/24 22:41 36.9 C 76 18 133/66 96 Nasal Cannula 05/14/24 21:43 101 H O2 Flow Rate 05/15/24 07:34 1 05/15/24 07:13 1 05/15/24 02:44 1 05/15/24 01:49 1 05/14/24 22:41 1 05/14/24 21:43 PG Care Time/CCT Total # of Minutes Spent Total Time Spent with Patient: Total time spent is greater than 50% in coordination of care (as documented) at patient's floor/unit and/or counseling patient: Coding Level of Care Code 53268 SUB INP/OBS CARE 2/35MIN Diagnoses COPD exacerbation J44.1 Cavitary lung disease J98.4 Acute hypoxic respiratory failure J96.01 Current every day smoker F17.200 Cocaine abuse F14.10
[2024-05-15 13:13] LABS: Hepatitis A Antibody IgM NON-REACTIVE (NON-REACTIVE); Hepatitis B Core Antibody IgM NON-REACTIVE (NON-REACTIVE)
--- NOTE | 2024-05-15 14:47 | Infectious Disease Consult ---
Date of Service May 15, 2024 Telehealth Information I performed this visit using a real-time telehealth connection between my location and the patients location ([facility]). After connecting through interactive tele-video, patient was identified by name and date of and/or wristband check.Patient (or authorized healthcare outside sales representative insurance) was informed that this was a telemedicine visit and it was being conducted confidentially over secure lines. My office door was closed and no one else was present in the room with me.Patient (or authorized healthcare outside sales representative insurance) provided consent to proceed with the visit, expressed an understanding of privacy and security of the telemedicine visit, and gave permission to have a hospital outside sales representative insurance in the room in order to assist with the visit and to conduct portions of the visit, as needed. I informed the patient (or authorized healthcare outside sales representative insurance) that I reviewed their record and presented the opportunity for them to ask any questions regarding the visit today. The patient agreed to participate. Assessment & Plan (1) Cavitary lung disease: (2) COPD (chronic obstructive pulmonary disease): (3) Community acquired bacterial pneumonia: Plan patient does have a concerning cavitary lesion with likely fungus ball in the anterior. It is unclear if there is any bacterial component to the cavitary lesion or secondary to her severe underlying chronic lung disease. Currently smears are negative however cultures are pending. Regardless would recommend bronchoscopy non emergently to obtain diagnosis as there may be an additional mold/mycobacteria causing the cavity on top of her lung disease. She likely had acute bacterial pneumonia on top of her chronic findings currently given that she is no longer on oxygen, WBC downtrending. Would recommend transitioning to ceftriaxone 2 g IV q.day for the duration of her inpatient stay with transitioned to Levaquin to complete a total of 7 days. - Bronchoscopy with bacterial, fungal, AFB cultures and nonemergent settings with continued follow up with Pulmonology - ceftriaxone 2 g IV Q 24 hours - upon preparation for discharge, Levaquin 750 mg Q 24 hours for a total of 7 days Appreciate consultation, please do not hesitate to reach out for any further questions or concerns. Samy Sloan MD PGY5 Infectious Disease History of Present Illness History of Present Illness 59F w PMH COPD, PE presented to the ED d/t SOB, CT with bronchial wall thickening /mucous plugging, Multifocal tree-in-bud nodular opacities, consolidation in left lower lob approx. 4 x 3 cm, Left apex w 5.4cm thick walled cavitary lesion w 3.7cm ovoid soft tissue centrally. Mild patchy consolidations right lung and small loculated left apical pleural effusion. WBC 24, Hypoxia. Sputum AFAB smear x 4 negative, bacterial stain w many PMNs, gram negative diplococci w current growth of normal lang. Currently Day 3 of Cefepime/ Doxycycline. WBC downtrending, hypoxia improving Allergies Allergy/AdvReac Type Severity Reaction Status Date / Time No Known Allergies Allergy Verified 02/26/21 13:08 Home Medications Medication Instructions Recorded Confirmed Type acetaminophen 500 mg tablet 500 mg PO Q6H PRN Pain 05/11/24 05/11/24 History Patient History Medical History Current every day smoker Hypothyroidism Opioid dependence Family History Other Family history non-contributory Social History Smoking Status: Current every day smoker Tobacco Type: Cigarettes Hx Alcohol Use: No Hx Substance Use: Yes (unsure of narcotic name) Non-Prescribed Medications: Crack / Cocaine Last Used Substance: Just Prior to Arrival Preferred Language: Hungarian Communication Ability: Effective House Designer Required: No Beliefs That Will Affect Care: None marital status: Single Current Living Situation: Family Current Living Situation Comment: lives with daughter Feels Safe at Home: Yes Assistive Devices: None Review of Systems CONSTITUTIONAL: Denies weight loss, fever and chills. PSYCHIATRIC: Denies recent changes in mood. Denies anxiety and depression. Physical Exam GENERAL: Appears as stated age. No acute distress. NEUROLOGIC: No focal neurological deficits. Cranial nerves grossly intact. Results & Data Vital Signs (Past 12 Hours) Vital Signs Temp Pulse Resp BP Pulse Ox O2 Del Method O2 Flow Rate 05/15/24 12:46 103 H 16 97 Nasal Cannula 1 05/15/24 10:44 Nasal Cannula 1 05/15/24 10:41 36.7 C 101 H 20 109/71 97 Nasal Cannula 1 05/15/24 07:34 101 H 18 95 Nasal Cannula 1 05/15/24 07:13 36.7 C 99 H 17 132/82 96 Nasal Cannula 1 05/15/24 02:44 36.7 C 86 17 126/86 96 Nasal Cannula 1 Laboratory Results 05/14/24 07:36 Gram Stain - Final Sputum, Expectorated Sputum Culture - Preliminary Pin-point growth present, reincubating. 05/14/24 07:30 Acid Fast Bacilli Smear - Final Sputum, Expectorated Acid Fast Bacilli Culture - Pending 05/13/24 Unknown Acid Fast Bacilli Smear - Final Sputum, Expectorated Acid Fast Bacilli Culture - Pending 05/13/24 Unknown Acid Fast Bacilli Smear - Final Sputum, Expectorated Acid Fast Bacilli Culture - Pending 05/13/24 14:00 Acid Fast Bacilli Smear - Final Sputum, Expectorated Acid Fast Bacilli Culture - Pending 05/13/24 15:55 Gram Stain - Final Sputum, Expectorated Sputum Culture - Final Moderate normal lang. 05/13/24 14:00 Gram Stain - Final Sputum, Expectorated Sputum Culture - Final Light normal lang. 05/13/24 Unknown Gram Stain - Final Sputum, Expectorated Sputum Culture - Final Light normal lang. 05/15/24 05/13/24 06:07 06:31 WBC 18.40 H RBC 3.66 L Hgb 11.5 L Hct 35.6 L MCV 97.3 MCH 31.4 MCHC 32.3 RDW Std Deviation 59.7 H RDW Coeff of Marilee 17.0 H Plt Count 467 H MPV 8.4 L Immature Gran % (Auto) 1.0 Neut % (Auto) 78.6 Lymph % (Auto) 12.0 [place] % (Auto) 7.5 Eos % (Auto) 0.8 Baso % (Auto) 0.1 Neut # (Auto) 14.46 H Lymph # (Auto) 2.20 [place] # (Auto) 1.38 H Eos # (Auto) 0.15 Baso # (Auto) 0.02 Immature Gran # (Auto) 0.19 Sodium 138 Potassium 3.7 Chloride 102 Carbon Dioxide 33 H Anion Gap 3 BUN 23 Creatinine 0.81 Est Cr Clr Drug Dosing 48.0 eGFR 83.05 BUN/Creatinine Ratio 28.4 H Glucose 83 Calcium 8.6 Hepatitis A IgM Ab NON-REACTIVE Hep B Core IgM Ab NON-REACTIVE Diagnostic Findings Laboratory Results WBC 18.40 K/ul (4.8-10.8) H 05/15/24 06:07 RBC 3.66 M/uL (4.20-5.40) L 05/15/24 06:07 Hgb 11.5 g/dl (12.0-16.0) L 05/15/24 06:07 Hct 35.6 % (37.0-47.0) L 05/15/24 06:07 MCV 97.3 fL (80.0-100.0) 05/15/24 06:07 MCH 31.4 pg (25.0-34.0) 05/15/24 06:07 MCHC 32.3 g/dL (32.0-36.0) 05/15/24 06:07 RDW Std Deviation 59.7 fL (36.4-46.3) H 05/15/24 06:07 RDW Coeff of [place] 17.0 % (11.5-14.5) H 05/15/24 06:07 Plt Count 467 K/uL (130-400) H 05/15/24 06:07 MPV 8.4 fL (9.4-12.4) L 05/15/24 06:07 Immature Gran % (Auto) 1.0 % 05/15/24 06:07 Neut % (Auto) 78.6 % 05/15/24 06:07 Lymph % (Auto) 12.0 % 05/15/24 06:07 [place] % (Auto) 7.5 % 05/15/24 06:07 Eos % (Auto) 0.8 % 05/15/24 06:07 Baso % (Auto) 0.1 % 05/15/24 06:07 Neut # (Auto) 14.46 K/uL (1.40-6.50) H 05/15/24 06:07 Lymph # (Auto) 2.20 K/uL (1.20-3.40) 05/15/24 06:07 [place] # (Auto) 1.38 K/uL (0.11-0.59) H 05/15/24 06:07 Eos # (Auto) 0.15 K/uL (0.00-0.50) 05/15/24 06:07 Baso # (Auto) 0.02 K/uL (0.00-0.20) 05/15/24 06:07 Immature Gran # (Auto) 0.19 K/uL (0.01-0.20) 05/15/24 06:07 PT 11.9 Seconds (9.0-12.0) 05/12/24 14:35 INR 1.1 (0.9-1.1) 05/12/24 14:35 APTT 31 Seconds (21-31) 05/11/24 22:33 PTT Ratio 1.2 05/11/24 22:33 VBG pH 7.31 (7.36-7.41) L 05/11/24 12:55 VBG pCO2 45 mmHg (38-50) 05/11/24 12:55 VBG pO2 30 mmHg 05/11/24 12:55 VBG HCO3 23 mmol/L 05/11/24 12:55 VBG O2 Saturation < 60.0 % 05/11/24 12:55 VBG Base Excess -3.7 mEq/L 05/11/24 12:55 Sodium 138 mmol/L (136-145) 05/15/24 06:07 Potassium 3.7 mmol/L (3.5-5.1) 05/15/24 06:07 Chloride 102 mmol/L (98-107) 05/15/24 06:07 Carbon Dioxide 33 mmol/L (21-32) H 05/15/24 06:07 Anion Gap 3 (3-11) 05/15/24 06:07 BUN 23 mg/dl (6-23) 05/15/24 06:07 Creatinine 0.81 mg/dl (0.6-1.2) 05/15/24 06:07 Est Cr Clr Drug Dosing 48.0 ml/min 05/15/24 06:07 eGFR 83.05 05/15/24 06:07 BUN/Creatinine Ratio 28.4 (10-20) H 05/15/24 06:07 Glucose 83 mg/dl (70-99(Fasting)) 05/15/24 06:07 Lactate 1.6 mmol/L (0.4-2.0) 05/11/24 14:13 Calcium 8.6 mg/dl (8.6-10.3) 05/15/24 06:07 Magnesium 1.7 mg/dl (1.7-2.4) 05/12/24 07:06 Total Bilirubin 0.3 mg/dl (0.2-1.0) 05/12/24 21:03 Direct Bilirubin 0.0 mg/dl (0-0.2) 05/12/24 21:03 AST 82 U/L (13-39) H 05/12/24 21:03 ALT 53 U/L (7-52) H 05/12/24 21:03 Alkaline Phosphatase 73 U/L (34-104) 05/12/24 21:03 Ammonia 15.0 umol/L (18-72) L 05/11/24 17:44 Troponin I High Sens 13.5 pg/ml (0-14) 05/11/24 12:55 B-Natriuretic Peptide 223 pg/ml (0-100) H 05/11/24 12:55 Total Protein 7.1 gm/dl (6.0-8.3) 05/12/24 21:03 Albumin 3.3 gm/dl (3.4-5.0) L 05/12/24 21:03 Globulin 3.6 gm/dl (2.5-4.0) 05/12/24 14:35 Albumin/Globulin Ratio 0.9 (0.9-2) 05/12/24 14:35 TSH 38.955 uIu/ml (0.300-4.500) H 05/11/24 12:55 Free T4 0.33 ng/dl (0.61-1.60) L 05/11/24 12:55 Urine Color Yellow 05/11/24 16:44 Urine Appearance Clear (Clear) 05/11/24 16:44 Urine pH 5.5 (4.5-7.5) 05/11/24 16:44 Ur Specific [place] > 1.045 (1.000-1.030) H 05/11/24 16:44 Urine Protein 1+ (Negative) H 05/11/24 16:44 Urine Glucose (UA) Negative (Negative) 05/11/24 16:44 Urine Ketones Trace (Negative) H 05/11/24 16:44 Urine Blood 1+ (Negative) H 05/11/24 16:44 Urine Nitrite Negative (Negative) 05/11/24 16:44 Urine Bilirubin Negative (Negative) 05/11/24 16:44 Urine Urobilinogen Negative (Negative) 05/11/24 16:44 Ur Leukocyte Esterase Negative (Negative) 05/11/24 16:44 Urine WBC (Auto) 0-5 /hpf (0-5) 05/11/24 16:44 Urine RBC (Auto) 0-2 /hpf (0-2) 05/11/24 16:44 U Hyaline Cast (Auto) 0-2 /lpf (0-2) 05/11/24 16:44 U Epithel Cells (Auto) 0-2 /hpf (0-2) 05/11/24 16:44 Urine Bacteria (Auto) None Seen (None Seen) 05/11/24 16:44 Nasal Screen MRSA (PCR) Negative (Negative) 05/12/24 17:38 Salicylates < 3.0 mg/dl (3.0-30) L 05/11/24 22:33 Urine Opiates Screen Neg (Neg) 05/11/24 16:44 Ur Methadone, Qual Neg (Neg) 05/11/24 16:44 Urine Fentanyl Screen Neg (Neg) 05/11/24 16:44 Acetaminophen < 3 ug/ml (10-30) L 05/11/24 16:31 Urine Barbiturates Neg (Neg) 05/11/24 16:44 Ur Phencyclidine (PCP) Neg (Neg) 05/11/24 16:44 U Amphetamin/Meth Scrn Pos (Neg) H 05/11/24 16:44 MDMA (Ecstasy) Screen Pos (Neg) H 05/11/24 16:44 U Benzodiazepines Scrn Neg (Neg) 05/11/24 16:44 Ur Cocaine Metabolite Neg (Neg) 05/11/24 16:44 U Marijuana (THC) Screen Neg (Neg) 05/11/24 16:44 Ethyl Alcohol mg/dL < 10.0 mg/dl (<10.0) 05/11/24 13:33 Adenovirus (PCR) Not Detected (NotDetected) 05/11/24 14:25 B. pertussis DNA (PCR) Not Detected (NotDetected) 05/11/24 14:25 B.parapertussis DNA PCR Not Detected (NotDetected) 05/11/24 14:25 C. pneumoniae DNA (PCR) Not Detected (NotDetected) 05/11/24 14:25 Coronavirus OC43 (PCR) Not Detected (NotDetected) 05/11/24 14:25 Coronavirus HKU1 (PCR) Not Detected (NotDetected) 05/11/24 14:25 Coronavirus 229E (PCR) Not Detected (NotDetected) 05/11/24 14:25 SARS-CoV-2 (PCR) Not Detected (NotDetected) 05/11/24 14:25 Coronavirus NL63 (PCR) Not Detected (NotDetected) 05/11/24 14:25 Hepatitis A IgM Ab NON-REACTIVE (NON-REACTIVE) 05/13/24 06:31 Hep Bs Antigen Negative (Negative) 05/13/24 06:31 Hep B Core IgM Ab NON-REACTIVE (NON-REACTIVE) 05/13/24 06:31 Hepatitis C Antibody Negative (Negative) 05/13/24 06:31 Human Metapneumovir PCR Not Detected (NotDetected) 05/11/24 14:25 Influenza Type A (PCR) Not Detected (NotDetected) 05/11/24 14:25 Influenza Type B (PCR) Not Detected (NotDetected) 05/11/24 14:25 M. pneumoniae (PCR) Not Detected (NotDetected) 05/11/24 14:25 Parainfluenza 1 (PCR) Not Detected (NotDetected) 05/11/24 14:25 Parainfluenza 2 (PCR) Not Detected (NotDetected) 05/11/24 14:25 Parainfluenza 3 (PCR) Not Detected (NotDetected) 05/11/24 14:25 Parainfluenza 4 (PCR) Not Detected (NotDetected) 05/11/24 14:25 RSV (PCR) Not Detected (NotDetected) 05/11/24 14:25 Entero/Rhino (PCR) Not Detected (NotDetected) 05/11/24 14:25 Impressions Chest X-Ray 05/11/24 13:10 XR chest 1V portable CLINICAL HISTORY: Dyspnea COMPARISON STUDY: 02/26/2021 FINDINGS: Heart size and pulmonary vasculature are normal. There is emphysema. There is interval left apical pleural thickening with adjacent reticular and patchy opacity at the left lung apex. No other consolidation or pleural effusion seen. There is a 2.5 cm oval density at the mid central mediastinum just left of midline. IMPRESSION: 1. Emphysema. 2. Interval left apical pleural thickening and adjacent reticular and patchy opacity. Differential diagnosis includes scarring, pneumonia, malignancy, and posttreatment change. 3. Mid mediastinal density. Differential diagnosis includes artifact, enlarged lymph node, and other finding. 4. Suggest follow-up CT scan of the chest. ACT 112: Positive. There are findings on this exam that require communication between the performing entity and the patient following Patient Test Result [place] Act [place] Act 112) guidelines. Electronically signed by: Jeffery Garces M.D. 05/11/2024 1:44 PM Chest CTA 05/11/24 13:52 CT angio chest PE protocol CT DOSE: 255.58 mGy.cm HISTORY: 59 years-old Female with PE. Acute onset of breath TECHNIQUE: Multiple CTA images of the chest were obtained after the intravenous administration of 118 ml Optiray. Coronal and sagittal MIPS were obtained from the axial data set and were submitted for review. All measurements were obtained according to NASCET criteria. A dose lowering technique was utilized adhering to the principles of ALARA. COMPARISON: Chest radiograph of same day FINDINGS: CTA: Heart is normal in size. No pericardial effusion. Moderate coronary artery calcifications. Atherosclerosis of the aorta without aneurysm no central pulmonary emboli identified, evaluation is limited secondary to respiratory motion. CT CHEST: No dominant thyroid nodule. There are a few borderline-enlarged mediastinal and hilar lymph nodes measuring up to 10 mm. Respiratory motion artifact limits the study. Severe pulmonary emphysema. No pneumothorax. Bronchial wall thickening with mucous plugging. Multifocal tree-in-bud nodular opacities. Linear focus of consolidation within the left lower lobe measures approximately 4.4 x 1.7 x 2.7 cm. 5.4 cm irregular thick-walled cavitary focus in the left lung apex contains a 3.7 cm ovoid soft tissue attenuating structure centrally. Additionally, there is left lung volume loss with bronchiectasis and fibrosis within the lingula and left lung apex. Mild patchy consolidative opacities in the right lung. Small loculated left apical pleural effusion. Mild mid to distal esophageal wall thickening. No acute fracture or destructive bone lesion. IMPRESSION: 1. No pulmonary emboli. 2. Severe pulmonary emphysema with mucous plugging and probable bronchitis with multifocal infectious or inflammatory pneumonitis/bronchiolitis. 3. Small loculated left apical pleural effusion with mild mediastinal and hilar lymphadenopathy. 4. Volume loss with fibrosis and bronchiectasis of the left lung apex with 5.4 cm cavitation containing a 3.7 cm soft tissue density structure. This may represent a mycetoma however could be evaluated with bronchoscopy to exclude bronchogenic malignancy. 5. Additional indeterminate ovoid tubular opacity of the superior segment left lower lobe measuring 4.4 cm. Follow-up is needed. ACT 112: Negative or not required by law. The above report was generated using voice recognition software. It may contain grammatical, syntax or spelling errors. Electronically signed by: Celestino Plaza M.D. 05/11/2024 3:00 PM Abdomen Ultrasound 05/11/24 17:31 Exam(s): US ABDOMEN LIMITED EXAM: US Abdomen Limited, Right Upper Quadrant CLINICAL HISTORY: Elevated liver function tests. TECHNIQUE: Real-time ultrasound of the right upper quadrant with image documentation. COMPARISON: No relevant prior studies available. FINDINGS: Liver: The liver measures 11.9 cm. Fatty infiltration of the liver. No intrahepatic bile duct dilation. Gallbladder: Unremarkable. No gallstones. Common bile duct: Unremarkable as visualized measuring 0.4 cm. No stones. No dilation. Pancreas: The pancreatic head and body are within normal limits. The tail is not visualized due to overlying bowel gas. Right kidney: Question mildly increased echogenicity of the right kidney. No stones. No hydronephrosis. The right kidney measures 10.5 cm. IMPRESSION: 1. Fatty infiltration of the liver. 2. Question mildly increased echogenicity of the right kidney. This could be seen with chronic medical renal disease in the appropriate clinical setting. Electronically signed by: Kailey Conner MD 05/11/24 22:10 PM
[2024-05-15] MEDS: cefTRIAXone SODIUM 2,000 MG/50 ML BAG IV SCH (17:03)
[2024-05-16 07:12] LABS: Basophils # (auto) 0.03 K/uL (0.00-0.20); Basophils % (auto) 0.1 %; Eosinophils # (auto) 0.13 K/uL (0.00-0.50); Eosinophils % (auto) 0.6 %; Hematocrit (blood only) 37.8 % (37.0-47.0); Hemoglobin 12.2 g/dl (12.0-16.0); Immature Granulocytes # (auto) 0.29 K/uL (0.01-0.20); Immature Granulocytes % (auto) 1.4 %; Lymphocytes # (auto) 2.21 K/uL (1.20-3.40); Lymphocytes % (auto) 10.7 %; Mean Corpuscular Hgb Conc 32.3 g/dL (32.0-36.0); Mean Corpuscular Volume 95.9 fL (80.0-100.0); Mean Platelet Volume 8.4 fL (9.4-12.4); Monocytes # (auto) 1.34 K/uL (0.11-0.59); Monocytes % (auto) 6.5 %; Neutrophils # (auto) 16.64 K/uL (1.40-6.50); Neutrophils % (auto) 80.7 %; Platelet Count 482 K/uL (130-400); RDW Standard Deviation 58.4 fL (36.4-46.3); Red Blood Count 3.94 M/uL (4.20-5.40); White Blood Count 20.64 K/ul (4.8-10.8)
[2024-05-16 07:36] LABS: Calcium 8.7 mg/dl (8.6-10.3); Creatinine Clr Calc Pharmacy 59.9 ml/min; Potassium 3.6 mmol/L (3.5-5.1)
[2024-05-16 08:38] LABS: Quantiferon Mitogen-NIL 0.33 IU/mL; Quantiferon NIL 0.01 IU/mL; Quantiferon TB Gold Plus INDETERMINATE (NEGATIVE)
[2024-05-16 10:39] VITALS: TEMP 97.9
[2024-05-16 12:57] VITALS: RESP 18; O2SAT 93
--- NOTE | 2024-05-16 13:27 | XRay Report ---
XR chest 1V portable CLINICAL HISTORY: pneumonia COMPARISON STUDY: 05/11/2024 FINDINGS: Single view portable chest demonstrates no acute cardiopulmonary process. The patchy reticu lar density in the right lung base has resolved. The left apical pleural thickening and fibrous stranding is unchanged since the prior study and new s [place] 2021. Since there is some right to left retraction of the trachea, this is most likely fibrotic retraction. There is also a nodular opacity is seen through the base of the cardiac silhouette most l ikely either mediastinal or left hilar adenopathy. IMPRESSION: Improving patchy infiltrates in the right lung base. Stable left hilar adenopathy. Stabl e left apical opacity with pleural thickening and fibrotic retraction. ACT 112: Negative or not required by law. Electronically signed by: Blaire Soler M.D. 05/16/2024 1:24 PM
--- NOTE | 2024-05-16 13:35 | Discharge Summary ---
Date of Service May 16, 2024 Admission HPI Per Admitting Provider This is a 59 yr old F who has a significant PMH of drug abuse, tobacco abuse, COPD, anxiety and pulmonary embolism who presents to ED 2/2 SOB x 1 day. Her co workers are at bedside who help elicit history. Hx difficulty to obtain due to pt restlessness. Pt admits to taking 2 lines of cocaine over the last week. She admits to being off/on drugs since her early 50s. According to coworker suspected last ingestion around 12 p.m. today. Co workers started to notice that she was acting funny and more short of breath. They felt her lips were turning blue so they called EMS. It is further reported that pt has stopped taking all of her medications over the last 5 months. SHe reports being on a blood thinner for hx of PE and anxiety medications. She denies any inhalers. She reports being more SOB over the last few days as well as a productive cough. She reports being dx with PNA months ago, but never taking the medications she was prescribed. She denies any documented fever/chills, sweats, dizziness, chest pain, hemopysis, n/v/d, abd pain. Overall diminished appetite. Her co workers at bedside report they work for a very small [employer] company and they have known jenise for several years. She has been part of their family and she does a really good job at her job. They also report they have been through this with her before. They feel her history is consistent with behaviors they have seen. Pt also elicits to taking an unknown amount of, "stackers," and tylenol pm. Pt lives with her daughter Lalo. At baseline she is independent of ADLS and does not need any assist walking device. She denies ETOH, IV Drug use. She does smoke 2 cigarettes a day. Admission Exam Per Admitting Provider Constitutional: Thin, fraile, F, appears older than stated age, in bed very restless, difficult to converse with due to moving around, vitals as above Head: Normocephalic, Atraumatic Eyes: PERRL, conjunctivae normal, anicteric sclerae ENMT: external ear and nose normal, oropharynx dry membranes with poor dentition Neck: trachea midline, no thyromegaly normal visual inspection Respiratory: increased resp effort, lungs with course/rhonchi throughout, no wheeze, rales no accessory muscle use Cardiovascular: tachycardic rate, reg rhythm, no murmur, no edema Vessels: no JVD or carotid bruit Chest: normal inspection of chest Abdomen: normal bowel sounds, soft, nontender, no hepatosplenomegaly Musculoskeletal: no cyanosis or clubbing, arom x 4 Skin: no rashes, warm and dry normal turgor Neurologic: PERRL, EOMI, accommodation nl, no face palsy, no dysarthria CN's II-XI intact bilaterally and moves all extremities Psychiatric: A+Ox3 to basics, euthymic affect : deferred Principal Diagnosis #Acute Hypoxic resp failure #Possible Sepsis #COPD Exacerbation #Multifocal PNA #Bronchiectasis #Cavitary lesion x NAVIN #Known Drug use #Elevated LFT, likely secondary to drug use Discharge Exam Constitutional: WD/WN, vitals as above, NAD, sitting up in bed, pleasant, conversing easily Respiratory: normal respiratory effort, lungs clear to auscultation, no wheeze, rales, rhonchi. Normal insp/exp effort, no accessory muscle use Cardiovascular: RRR, no murmur, no edema Vessels: no JVD or carotid bruit Chest: Bilateral decreased air entry. Occasional wheeze Abdomen: normal bowel sounds, soft, nontender, no hepatosplenomegaly Musculoskeletal: no cyanosis or clubbing, extremities motor strength 5/5 Skin: no rashes, warm and dry normal turgor Neurologic: PERRL, EOMI, accommodation nl, no face palsy, no dysarthria CN's II- XI intact bilaterally and moves all extremities Psychiatric: A+Ox3, euthymic affect Discharge Data Allergies Allergy/AdvReac Type Severity Reaction Status Date / Time No Known Allergies Allergy Verified 02/26/21 13:08 Consultations 05/11/24 15:29 ED Decision to Admit Stat 05/11/24 16:12 Consult Pulmonology Routine 05/11/24 17:31 HIM [Consult Health Information Management] Routine 05/14/24 10:49 Consult Infectious Diseases Routine Ordered Studies 05/11/24 13:52 CT angio chest PE protocol Stat 05/11/24 17:31 US abdomen limited Routine Hospital Course (1) Acute hypoxic respiratory failure: (2) Cavitary pneumonia: (3) Cocaine withdrawal: (4) Sepsis: (5) Acetaminophen overdose: (6) COPD with exacerbation: (7) COPD (chronic obstructive pulmonary disease): (8) Cocaine abuse: (9) Bronchiectasis: (10) Pneumonia: (11) Current every day smoker: (12) Elevated LFTs: (13) Hypothyroidism: Plan Per prior attending w/ addendum: This is a 59 yr old F who has a significant PMH of drug abuse, tobacco abuse, COPD, anxiety and pulmonary embolism who presents to ED 2/2 SOB x 1 day. #Acute Hypoxic resp failure #Possible Sepsis #COPD Exacerbation #Multifocal PNA #Bronchiectasis #Cavitary lesion Pt presents with increasing SOB and productive cough. As per report, patient stopped all her medication 5 months ago. Prescription history does not show any medication --CT chest on admission No pulmonary emboli.2. Severe pulmonary emphysema with mucous plugging and probable bronchitis with multifocal infectious or inflammatory pneumonitis/bronchiolitis.3. Small loculated left apical pleural effusion with mild mediastinal and hilar lymphadenopathy.4. Volume loss with fibrosis and bronchiectasis of the left lung apex with 5.4 cm cavitation containing a 3.7 cm soft tissue density structure. This may represent a mycetoma however could be evaluated with bronchoscopy to exclude bronchogenic malignancy.5. Additional indeterminate ovoid tubular opacity of the superior segment left lower lobe measuring 4.4 cm. Follow-up is needed. Continue antibiotics IV zosyn and doxy; treat for 5 to 7 days on budesonide and formoterol nebulizer; continue on [id number] DuoNeb. Further valve, incentive spirometry. Steroid for 5 days Pulmonology consulted; Recommend nebulized bronchodilators, hypertonic saline nebs and broad-spectrum antibiotic. Discussed with the patient on 05/13 to obtain consent for HIV testing; patient reported that she does not want to do the test. Discussed with radiology to obtain images from [facility] to compare prior images; awaiting reply. Discussed on 05/15/2024. Discussed with patient's family as well to obtain prior medical records; they will try to bring it to the hospital so that it can be scanned into the system. However, upon discussion on 05/14/2024; she was not able to find any documents. [facility] records obtained on 05/15. Patient was hospitalized at [facility] in March of 2021. CTA of the chest at that time showed cystic mass in left lower lobe and 2 cavitary lesion in right lower lobe. She was also found to have PE involving right lower lobe and segmental pulmonary arteries. Patient had undergone bronchoscopy; found to have copious mucopurulent secretion throughout the left tracheobronchial tree..Bronchial washing was negative for malignancy. Appreciate pulmonology recommendation Infectious disease consulted as per recommendation by pulmonology for recommendation regarding antibiotic duration and choice. #Known Drug use #?Cocaine/Amphetamine use - pt reports snorting 2 lines a day for the past week #Non Profit Director use - consists of 300mg caffeine and green tea extract (can cause LFT elevated potentially per poison control) Patient had code purple on 05/11 for increased agitation and restlessness. Suspected to have withdrawal; was given IV Ativan. Monitor for withdrawal #Elevated LFTS; AST 126, ALT 73, ALP 105 on admision pt reports tylenol prn use; unknown amount Tylenol level less than 3 Poison control recommended NAC protocol which patient completed MalnutritionBMI of 16.9 kg/m; started on nutritional supplements #Tobacco abuse nicotine patch ordered #Hx of PE: off blood thinners; CTA doesn't show PE #Hypothyroidism: TSH 38.9, T4 0.33, will start levothyroxine 50mcg for now, will need repeat tsh in 4 weeks, pt previously with hypothyroidism and stopped taking her medications, in 2021 tsh 13 #DVT ppx: SQ Heparin Addendum 05/16/2024: Patient was seen and examined at bedside as a follow-up of [facility] hypoxic respiratory failure, possible pneumonia, COPD exacerbation, bronchiectasis, left upper lobe cavitary lesion. Quantiferon gold test is neg. Patient is hemodynamically stable and reports she is feeling her strength at her baseline and is ambulating around okay. Patient is eating okay, reports improving frequency and consistency of her bowel movement. Patient feels comfortable and would like to go home. Case was discussed with pulmonology, they recommend CT scan of the chest in 6 weeks and determine whether or not she needs bronchoscopy at that point in time. Patient to follow-up with pulmonology in 6 weeks times upon discharge. Appreciate ID recommendation, patient will be discharged on Levaquin, will continue with IV Rocephin until today, Levaquin ordered to complete 7 days therapy per ID recommendation. Patient will be provided with as needed Ativan for next few days for any anxiety/palpitation. Patient has to follow-up with PCP for liver function test in about a week time upon discharge. Patient's daughter was given a phone call and following instructions were communicated. She is being discharged with following instructions at the point of discharge: Follow-up with your primary care physician within a week time and likely you will need labs CBC/CMP/magnesium/phosphorus. You were evaluated for cavitary lung disease and possible infection by both infectious disease doctor and lung doctor while in the hospital. You will be discharged on antibiotic to complete the course. You will need repeat CT scan of the chest in about 6 weeks time and further pulmonology evaluation for outpatient bronchoscopy. Follow-up with pulmonology doctor in about 6 weeks time upon discharge. Follow up on your liver function test at your PCP office in a week time. You will need repeat thyroid function test in 6 weeks, coordinate with your PCP office to set up the test. Take your medications as prescribed. Please make sure that you are able to get your medications today by calling your pharmacy before you leave the hospital so that your treatment continuity is not broken. Please note the above document was generated using voice recognition software. It may contain grammatical, syntax or spelling errors. Any formal questions or concerns about the content, text or information contained within the body of this dictation should be directly addressed to the provider for clarification Home Health Attestation I certify that this patient is under my care and that I, or a physicians hotel administrative assistant working with me, had a face to-face encounter that meets the home health [id number] encounter requirements with this patient. The encounter with the patient was in whole, or in part, for the following medical condition, which is the primary reason for home health care (list medical condition): I certify that, based on my findings, the following services are medically necessary home health services: My clinical findings support the need for the above services because: Further, I certify that my clinical findings support that this patient is homebound (i.e. absences from home require considerable and taxing effort and are for medical reasons or catholic services or infrequently or of short duration when for other reasons) because: Certification for Home Health Services: Based on the above findings, I certify that this patient is confined to the home and needs intermittent prison care, physical therapy and/or speech therapy or continues to need occupational therapy. The patient is under my care, and I have initiated the establishment of the plan of care. This patient will be followed by a physician who will periodically review the plan of care. Total Time Total Time Spent Total Time Spent (In Minutes): 35 Discharge Plan Discharge Items Patient Disposition: Home - Self-Care Reason For Visit: ACUTE HYPOXIC RESPIRATORY FAILURE Discharge Diagnosis: #Acute Hypoxic resp failure #Possible Sepsis #COPD Exacerbation #Multifocal PNA #Bronchiectasis #Cavitary lesion x NAVIN #Known Drug use #Elevated LFT, likely secondary to drug use Condition on Discharge: Serious Activity: Resume your previous activity Non-emergency contact: Primary Care Provider Call non-emergency contact if: you have any medication questions and your symptoms worsen Follow-up/Referrals: PCP,NO [Primary Care Provider] - Diet: Regular Diet Texture: Easy to Chew Addtl Attending Provider Instructions: Follow-up with your primary care physician within a week time and likely you will need labs CBC/CMP/magnesium/phosphorus. You were evaluated for cavitary lung disease and possible infection by both infectious disease doctor and lung doctor while in the hospital. You will be discharged on antibiotic to complete the course. You will need repeat CT scan of the chest in about 6 weeks time and further pulmonology evaluation for outpatient bronchoscopy. Follow-up with pulmonology doctor in about 6 weeks time upon discharge. Follow up on your liver function test at your PCP office in a week time. You will need repeat thyroid function test in 6 weeks, coordinate with your PCP office to set up the test. Take your medications as prescribed. Please make sure that you are able to get your medications today by calling your pharmacy before you leave the hospital so that your treatment continuity is not broken. Pending Studies at Discharge: Yes Stand-Alone Forms: My [facility], Smoking Cessation Medications and DC Order Prescriptions: New nicotine 7 mg/24 hr Patch 24 Hour 1 patch transdermal QAM Qty: 28 0RF levothyroxine [Synthroid] 50 mcg Tablet 50 mcg PO DAILYBB Qty: 30 0RF guaifenesin [Mucinex] 600 mg Tablet Extended Release 12hr 1,200 mg PO Q12 5 Days Qty: 20 0RF Anoro Ellipta 62.5-25 mcg/actuation blister with device 1 inh inhalation DAILY Qty: 60 0RF lorazepam [Ativan] 1 mg tablet 1 mg PO BID PRN (Reason: anxiety) 5 Days Qty: 10 0RF levofloxacin 750 mg tablet 750 mg PO DAILY 5 Days Qty: 5 0RF Probiotic 3 billion cell capsule 3,000 mmu cells PO DAILY 7 Days Qty: 7 0RF Rx Instructions: administer with a meal Continued acetaminophen [Tylenol Ex Str Arthritis Pain] 500 mg Tablet 500 mg PO Q6H PRN (Reason: Pain) Discharge Orders: Discharge Order (Routine); Ordered 05/16/24 Ordered By: Nicole Friedman Admission Data Admit Date/Time: 05/11/24 15:39 Attending Provider: Nicole Friedman Admit Provider: Jacob Leigh Primary Care Provider: PCP,NO Other Providers: Jacob Leigh; Radha Prakash; Kailash Perez; Pushpa Gan; Walker Long I.; Yuniel Fagan II; Chantell Antony; Gene Leigh; Td De Luna; Bobbi Avendano; Samy Sloan
[2024-05-16 13:41] VITALS: BP 129/84
--- NOTE | 2024-05-16 13:50 | Pulmonology Progress Note ---
Date of Service May 16, 2024 Assessment & Plan (1) COPD exacerbation: (2) Cavitary lung disease: (3) Acute hypoxic respiratory failure: (4) Current every day smoker: (5) Cocaine abuse: Plan CT chest 05/11/2024 personally reviewed: Motion degraded study Cavitary lesion in the left upper lobe with possible Volume loss in the left upper lobe Consolidative process in the left lower lobe 1.7 cm x 4.4 cm Patchy opacity in the right lower lobe on the periphery Minimal hilar and mediastinal lymphadenopathy 2D echo 05/12/2024: EF 65-70%, RV normal in size and function -- Cavitary lesion in the left upper lobe with left lower lobe consolidative process Cavitary lesion in the left upper lobe with a new cavitary lesion likely representing mycetoma --> new compared to chest x-ray 03/2022 Left lower lobe opacity could represent pneumonia versus mucous plugging Denies any known exposure tuberculosis, never has been incarcerated. Respiratory BioFire negative for everything on 05/11/2024 Nasal MRSA negative Chest x-ray from 03/29/2022 did not show any abnormality in the left upper lobe -- COPD with emphysema with acute exacerbation Not on any inhalers at home Recommend either Anoro or Stiolto on discharge --Active smoker > [id number] smoking history --Cocaine use Plan: I was able to review her prior CT chest reports from [place] which indicated that she had a pulmonary embolism and right lower lobe cavitary lesions but there was no evidence of a left upper lobe lesion at that time. Apparently bronchoscopy was performed then. Results of bronchoscopy are not available. ID is recommending that the patient complete course of 7 days of levofloxacin. She will need to follow-up outpatient with a CT chest in about 6 weeks. If cavitary lesion is still present, she will need a bronchoscopy with biopsies to rule out malignancy and/or TB. AFB sputum smears are negative. QuantiFERON gold was indeterminate. Patient symptomatically improved with antibiotics for community-acquired pneumonia in a patient with underlying COPD. She can follow- up with Dr. Prakash in the clinic around that time. Admission and Anticipated Discharge Date Admission Date: May 11, 2024 Subjective Hypoxemia has resolved. Cough has improved significantly. No fevers or chills today. She is eager to go home. Review of Systems Review of Systems: All systems reviewed & are unremarkable except as noted in HPI & below Physical Exam Physical Exam: Constitutional: No acute distress, frail-appearing HEENT: EOMI, PERRLA, poor dentition Respiratory system: Decreased air entry bilaterally, no wheeze, no rhonchi, positive crackles left upper lobe anteriorly CVS: S1-S2 positive, no murmurs or gallops Abdomen: Soft, nontender, nondistended, positive bowel sounds x4 Extremities: +2 pulses bilaterally radialis/ dorsalis pedis, no cyanosis, no edema Neuro: Awake alert oriented x3 Psych: Normal mood and affect G/U: No Elizabeth Skin: no rashes, warm and dry (Ecchymoses appreciated in bilateral upper extremities ventral surface) Lymphatic: no cervical or axillary lymphadenopathy Results & Data Results & Data Vital Signs (Past 12 Hours) Vital Signs Temp Pulse Pulse Resp BP BP Pulse Ox 05/16/24 13:40 36.6 C 107 H 18 129/84 151/79 H 93 05/16/24 12:57 107 H 18 93 05/16/24 10:37 36.6 C 95 H 19 151/79 H 92 05/16/24 08:00 05/16/24 08:00 94 H 05/16/24 07:27 100 H 18 96 05/16/24 06:57 36.7 C 102 H 19 131/81 92 O2 Del Method 05/16/24 13:40 05/16/24 12:57 Room Air 05/16/24 10:37 Room Air 05/16/24 08:00 Room Air 05/16/24 08:00 05/16/24 07:27 Room Air 05/16/24 06:57 Room Air PG Care Time/CCT Total # of Minutes Spent Total Time Spent with Patient: Total time spent is greater than 50% in coordination of care (as documented) at patient's floor/unit and/or counseling patient: Coding Level of Care Code 53940 SUB INP/OBS CARE 2/35MIN Diagnoses COPD exacerbation J44.1 Cavitary lung disease J98.4 Acute hypoxic respiratory failure J96.01 Current every day smoker F17.200 Cocaine abuse F14.10
[2024-05-16 14:00] VITALS: PULSE 98
[2024-05-16 20:02] LABS: Amphetamine Urine, Confirm 2171 ng/mL (<250); MDA negative; MDEA negative; MDMA (Ecstasy) Urine, Confirm negative; Methamphetamine, Ur Confirm >15000 ng/mL (<250)
--- NOTE | 2024-05-17 10:56 | Coding Query ---
MALNUTRITION To promote full compliance with coding requirements relating to patient care, physician participation is requested in all cases of lamination spinner uncertainty. Please assist us with the question(s) below: Please place an X within the parenthesis (x). If other, please document: "Malnutrition" is documented in this record. BMI 16.9 If possible, please check the box that provides a more specific diagnosis: ( ) Mild malnutrition ( ) Moderate malnutrition ( ) Severe malnutrition ( ) Protein malnutrition (kwashiorkor) ( ) Severe protein calorie malnutrition (x ) Protein calorie malnutrition, unspecified ( ) Other (please specify): Was this diagnosis present on admission? Please place an X within the parenthesis (x). ( ) Present on admission ( ) Not present on admission ( ) Unable to be clinically determined Thank you Nash MORGAN
== END 2024-05-16 15:05 | disposition home or self-care (01) | DRG 871 ==
LOC: ED 12:46 → SUATTDRO 15:39 → 2N 15:39 → 2S 19:22